=== PATIENT | male | born 1955 | race Caucasian/White ===

== ENCOUNTER → 2020-05-06 09:07 | Outpatient (BNVA) | payer OTHER, SELFPAY | PROVIDERS: PCP Internal Medicine; Visit Provider Internal Medicine | DX: F11.99 Opioid use, unspecified with unspecified opioid-induced disorder (principal) | CPT/HCPCS: 80305 ==

== ENCOUNTER → 2020-06-03 09:51 | Outpatient (BNVA) | payer OTHER, SELFPAY | PROVIDERS: Visit Provider Internal Medicine | DX: F11.20 Opioid dependence, uncomplicated (principal) | CPT/HCPCS: 80305 ==

== ENCOUNTER → 2020-07-02 13:24 | Outpatient (BNVA) | payer OTHER, SELFPAY | PROVIDERS: Visit Provider Internal Medicine | DX: Z76.89 Persons encountering health services in other specified circumstances (principal) ==

== ENCOUNTER → 2020-07-30 10:09 | Outpatient (BNVA) | payer OTHER, SELFPAY | PROVIDERS: PCP Internal Medicine; Visit Provider Internal Medicine | DX: Z76.89 Persons encountering health services in other specified circumstances (principal) ==

== ENCOUNTER → 2020-08-26 10:10 | Outpatient (BNVA) | payer OTHER, SELFPAY | PROVIDERS: PCP Internal Medicine; Visit Provider Internal Medicine ==

== ENCOUNTER 2020-09-23 10:09 | Outpatient (REF) | payer OTHER, SELFPAY ==
[2020-09-27 13:17] LABS: Buprenorphine 270 ng/mL; Norbuprenorphine 410 ng/mL
== END 2020-09-23 10:10 | disposition home or self-care (01) ==
LOC: HO.LNP 10:09
PROVIDERS: PCP Internal Medicine; Visit Provider Internal Medicine
DX: F11.20 Opioid dependence, uncomplicated (principal)
CPT/HCPCS: 80305; 80348

== ENCOUNTER → 2020-10-21 09:42 | Outpatient (BNVA) | payer OTHER, SELFPAY | PROVIDERS: PCP Internal Medicine; Visit Provider Internal Medicine | DX: F11.99 Opioid use, unspecified with unspecified opioid-induced disorder (principal); F12.90 Cannabis use, unspecified, uncomplicated; G89.4 Chronic pain syndrome | CPT/HCPCS: 80305 ==

== ENCOUNTER → 2020-11-18 09:41 | Outpatient (BNVA) | payer OTHER, SELFPAY | PROVIDERS: PCP Internal Medicine; Visit Provider Internal Medicine | DX: F11.99 Opioid use, unspecified with unspecified opioid-induced disorder (principal); F12.90 Cannabis use, unspecified, uncomplicated | CPT/HCPCS: 80305 ==

== ENCOUNTER → 2020-12-16 13:18 | Outpatient (BNVA) | payer OTHER, SELFPAY | PROVIDERS: Visit Provider Internal Medicine | DX: F11.99 Opioid use, unspecified with unspecified opioid-induced disorder (principal) | CPT/HCPCS: 80305 ==

== ENCOUNTER 2021-01-04 12:12 | Outpatient (REF) | payer OTHER, SELFPAY ==
[2021-01-04 13:01] LABS: MANUAL DIFF FLAG NO
[2021-01-04 13:06] LABS: Basophils Absolute Auto 0.1 X10*3/uL (0.0-0.2); Eosinophils Absolute Auto 0.1 X10*3/uL (0.0-0.4); Eosinophils Percent Auto 1.6 % (0-4); Hematocrit 53.2 % (42-52); Hemoglobin 18.1 g/dl (14.0-18.0); Imm Gran Abs Auto 0.04 X10*3/uL (0.00-0.03); Imm Gran Pct Auto 0.5 % (0.0-0.4); Lymphocytes Absolute Auto 2.1 X10*3/uL (1.2-4.9); Mean Corpuscular Hemoglobin 29.4 pg (27.0-33.0); Mean Corpuscular Volume 86.4 fL (80-98); Mean Platelet Volume 10.6 fL (9.4-12.4); Monocytes Absolute Auto 0.4 X10*3/uL (0.1-1.2); Monocytes Percent Auto 5.1 % (2-11); Neutrophils Absolute Auto 5.5 X10*3/uL (2.0-8.3); Neutrophils Percent Auto 66.8 % (45-73); Platelet Count 238 X10*3/uL (160-400); Red Blood Count 6.16 X10*6/uL (4.60-5.80); Red Cell Distribution Width 12.9 % (11.0-16.0); White Blood Count 8.2 X10*3/uL (4.8-10.8)
[2021-01-04 13:42] LABS: Anion Gap 14 (12-20); HDL Cholesterol 36 mg/dL
[2021-01-04 13:53] LABS: Glucose Urine UA 250 MG/DL (NEG); Leukocyte Esterase Urine NEG (NEG); Nitrite Urine NEG (NEG); PH 5.5 (5.0-8.0); Specific Gravity - Urine >= 1.030 (1.005-1.025); Urine Blood NEG (NEG); Urine Ketones NEG (NEG); Urine Protein NEG (NEG-TRACE)
[2021-01-04 13:58] LABS: Estimated Average Glucose 186 mg/dL; Hemoglobin A1c % 8.1 %
[2021-01-04 14:00] LABS: Appearance Urine CLEAR; Color Urine YELLOW
[2021-01-04 14:02] LABS: Alanine Aminotransferase 19 U/L (0-40); Albumin Level 4.3 g/dL (3.5-5.0); Alkaline Phosphatase 131 U/L (39-117); Aspartate Amino Transferase 15 U/L (5-37); Bilirubin Total 0.5 mg/dL (0.0-1.0); Blood Urea Nitrogen 20 mg/dL (9-16); Calcium 9.6 mg/dL (8.4-10.2); Carbon Dioxide 26 mmol/L (22-29); Chloride 106 mmol/L (96-108); Cholesterol 181 mg/dL; Estimated Glomerular Filt Rate > 60; Glucose Random 193 mg/dL (60-115); LDL Cholesterol Calculated 129 mg/dl; Potassium 4.5 mmol/L (3.3-5.1); Sodium 141 mmol/L (135-145); Total Protein 7.1 g/dL (6.5-8.0); Triglycerides 82 mg/dL
[2021-01-04 14:03] LABS: Prostate Specific Antigen 2.83 ng/mL (<0.05-4.0)
[2021-01-04 14:09] LABS: Creatinine Urine 198.89 mg/dL; Microalbum/Creatinine Ratio Ur 12.5 ug/mg cr
== END 2021-01-04 12:13 | disposition home or self-care (01) ==
LOC: HO.LAB 12:12
PROVIDERS: PCP Internal Medicine; Visit Provider Internal Medicine
DX: Z12.5 Encounter for screening for malignant neoplasm of prostate (principal); J44.9 Chronic obstructive pulmonary disease, unspecified; G47.33 Obstructive sleep apnea (adult) (pediatric); N40.0 Benign prostatic hyperplasia without lower urinary tract symptoms; I10 Essential (primary) hypertension; R73.03 Prediabetes
CPT/HCPCS: 36415; 80053; 80061; 81003; 82043; 83036; 84153; 85025

== ENCOUNTER → 2021-01-13 09:42 | Outpatient (BNVA) | payer OTHER, SELFPAY | PROVIDERS: Visit Provider Internal Medicine | DX: Z51.81 Encounter for therapeutic drug level monitoring (principal); F11.90 Opioid use, unspecified, uncomplicated | CPT/HCPCS: 80305 ==

== ENCOUNTER 2021-02-10 10:28 | Outpatient (REF) | payer OTHER, SELFPAY | END 2021-02-10 10:29 | disposition home or self-care (01) | LOC: HO.LAB 10:28 | PROVIDERS: Visit Provider Internal Medicine | DX: F11.99 Opioid use, unspecified with unspecified opioid-induced disorder (principal); Z51.81 Encounter for therapeutic drug level monitoring | CPT/HCPCS: 80305; 80348; 80354; 80362; 80364; 80365 ==

== ENCOUNTER → 2021-03-10 14:17 | Outpatient (BNVA) | payer OTHER, SELFPAY | PROVIDERS: Visit Provider Internal Medicine | DX: G89.4 Chronic pain syndrome (principal); F11.99 Opioid use, unspecified with unspecified opioid-induced disorder; F12.29 Cannabis dependence with unspecified cannabis-induced disorder; Z88.6 Allergy status to analgesic agent; Z88.8 Allergy status to other drugs, medicaments and biological substances; Z51.81 Encounter for therapeutic drug level monitoring | CPT/HCPCS: 80305 ==

== ENCOUNTER → 2021-05-05 10:15 | Outpatient (BNVA) | payer OTHER, SELFPAY | PROVIDERS: Visit Provider Internal Medicine | DX: Z51.81 Encounter for therapeutic drug level monitoring (principal); F11.90 Opioid use, unspecified, uncomplicated | CPT/HCPCS: 80305 ==

== ENCOUNTER 2021-05-07 10:56 | Outpatient (REF) | payer OTHER, SELFPAY ==
[2021-05-07 13:50] LABS: Estimated Average Glucose 163 mg/dL; Hemoglobin A1c % 7.3 %
[2021-05-07 13:58] LABS: Anion Gap 11 (12-20); Blood Urea Nitrogen 17 mg/dL (9-16); Calcium 9.7 mg/dL (8.4-10.2); Carbon Dioxide 28 mmol/L (22-29); Chloride 104 mmol/L (96-108); Estimated Glomerular Filt Rate > 60; Glucose Random 240 mg/dL (60-115); Potassium 4.2 mmol/L (3.3-5.1); Sodium 139 mmol/L (135-145)
== END 2021-05-07 10:57 | disposition home or self-care (01) ==
LOC: HO.10HDL 10:56
PROVIDERS: Visit Provider Internal Medicine
DX: E11.9 Type 2 diabetes mellitus without complications (principal)
CPT/HCPCS: 36415; 80048; 83036

== ENCOUNTER → 2021-07-07 10:16 | Outpatient (BNVA) | payer OTHER, SELFPAY | PROVIDERS: Visit Provider Internal Medicine | DX: F11.20 Opioid dependence, uncomplicated (principal); Z51.81 Encounter for therapeutic drug level monitoring; Z79.899 Other long term (current) drug therapy | CPT/HCPCS: 80305 ==

== ENCOUNTER → 2021-09-14 10:20 | Outpatient (BNVA) | payer BC, SELFPAY | PROVIDERS: Visit Provider Internal Medicine | DX: F11.20 Opioid dependence, uncomplicated (principal) | CPT/HCPCS: 80305 ==

== ENCOUNTER → 2021-11-09 10:28 | Outpatient (BNVA) | payer BC, SELFPAY | PROVIDERS: Visit Provider Internal Medicine | DX: Z51.81 Encounter for therapeutic drug level monitoring (principal); F11.20 Opioid dependence, uncomplicated | CPT/HCPCS: 80305 ==

== ENCOUNTER → 2022-01-04 11:21 | Outpatient (BNVA) | payer BC, SELFPAY | PROVIDERS: PCP Internal Medicine; Visit Provider Internal Medicine | DX: F11.20 Opioid dependence, uncomplicated (principal) | CPT/HCPCS: 80305; 99212 ==

== ENCOUNTER → 2022-03-09 11:17 | Outpatient (BNVA) | payer BC, MEDICARE, SELFPAY | PROVIDERS: PCP Internal Medicine; Visit Provider Internal Medicine | DX: F11.20 Opioid dependence, uncomplicated (principal) | CPT/HCPCS: 99212 ==

== ENCOUNTER 2022-05-04 17:06 | Outpatient (REF) | payer BC, SELFPAY ==
[2022-05-04 17:42] LABS: Fentanyl, urine Not Detected (Not Detect)
[2022-05-09 09:30] LABS: Buprenorphine 533
[2022-05-09 09:31] LABS: Naloxone 1392; Norbuprenorphine 409
== END 2022-05-04 17:07 | disposition home or self-care (01) ==
LOC: HO.LNP 17:06
PROVIDERS: Visit Provider Internal Medicine
DX: F11.20 Opioid dependence, uncomplicated (principal); Z51.81 Encounter for therapeutic drug level monitoring
CPT/HCPCS: 80307; 80348; 80362; 99212

== ENCOUNTER 2022-05-30 08:24 | Outpatient (REF) | payer BC, MEDICARE, SELFPAY ==
[2022-05-30 10:28] LABS: MANUAL DIFF FLAG NO
[2022-05-30 10:40] LABS: Basophils Absolute Auto 0.1 X10*3/uL (0.0-0.2); Basophils Percent Auto 1.2 % (0-2); Eosinophils Absolute Auto 0.3 X10*3/uL (0.0-0.4); Eosinophils Percent Auto 3.5 % (0-4); Hematocrit 53.7 % (42.0-52.0); Hemoglobin 17.9 g/dl (14.0-18.0); Imm Gran Abs Auto 0.04 X10*3/uL (0.00-0.03); Imm Gran Pct Auto 0.5 % (0.0-0.4); Lymphocytes Absolute Auto 2.5 X10*3/uL (1.2-4.9); Lymphocytes Percent Auto 28.5 % (20-40); Mean Corpuscular HGB Conc 33.3 g/dl (31.0-36.0); Mean Corpuscular Hemoglobin 28.2 pg (27.0-33.0); Mean Corpuscular Volume 84.7 fL (80.0-98.0); Mean Platelet Volume 10.3 fL (9.4-12.4); Monocytes Absolute Auto 0.5 X10*3/uL (0.1-1.2); Monocytes Percent Auto 5.8 % (2-11); Neutrophils Absolute Auto 5.3 x10*3/uL (2.0-8.3); Neutrophils Percent Auto 60.5 % (45-73); Platelet Count 245 X10*3/uL (160-400); Red Blood Count 6.34 X10*6/uL (4.60-5.80); Red Cell Distribution Width 13.2 % (11.0-16.0); White Blood Count 8.8 X10*3/uL (4.8-10.8)
[2022-05-30 10:55] LABS: Estimated Average Glucose 157 mg/dL; Hemoglobin A1c % 7.1 %
[2022-05-30 11:10] LABS: Alanine Aminotransferase 14 U/L (0-40); Albumin Level 3.9 g/dL (3.5-5.0); Alkaline Phosphatase 117 U/L (39-117); Anion Gap 15 (12-20); Aspartate Amino Transferase 13 U/L (5-37); Bilirubin Total 0.6 mg/dL (0.0-1.0); Blood Urea Nitrogen 16 mg/dL (9-16); Carbon Dioxide 26 mmol/L (22-29); Chloride 104 mmol/L (96-108); Cholesterol 146 mg/dL; Estimated Glomerular Filt Rate > 60; Glucose Fasting 159 mg/dL (60-99); HDL Cholesterol 34 mg/dL; LDL Cholesterol Calculated 102 mg/dl; Potassium 4.3 mmol/L (3.3-5.1); Sodium 141 mmol/L (135-145); Total Protein 6.9 g/dL (6.5-8.0); Triglycerides 53 mg/dL
[2022-05-30 11:16] LABS: Prostate Specific Antigen Scr 2.92 ng/mL (<0.05-4.0)
[2022-05-30 11:18] LABS: Creatinine Urine 90.84 mg/dL; Microalbum/Creatinine Ratio Ur 13.2 ug/mg cr
== END 2022-05-30 08:25 | disposition home or self-care (01) ==
LOC: HO.10HDL 08:24
PROVIDERS: Visit Provider Internal Medicine
DX: Z12.5 Encounter for screening for malignant neoplasm of prostate (principal); M19.90 Unspecified osteoarthritis, unspecified site; E11.9 Type 2 diabetes mellitus without complications; I10 Essential (primary) hypertension; N40.0 Benign prostatic hyperplasia without lower urinary tract symptoms
CPT/HCPCS: 36415; 80053; 80061; 82043; 83036; 84153; 85025

== ENCOUNTER → 2022-06-29 10:43 | Outpatient (BNVA) | payer OTHER, MEDICARE, SELFPAY | PROVIDERS: PCP Internal Medicine; Visit Provider Internal Medicine | DX: F11.20 Opioid dependence, uncomplicated (principal) | CPT/HCPCS: 99212 ==

== ENCOUNTER → 2022-09-09 14:10 | Outpatient (BNVA) | payer BC, MEDICARE, SELFPAY | PROVIDERS: PCP Internal Medicine; Visit Provider Nurse Practitioner Psychiatric/Mental Health | DX: Z51.81 Encounter for therapeutic drug level monitoring (principal); F11.20 Opioid dependence, uncomplicated | CPT/HCPCS: 80305; 99212 ==

== ENCOUNTER 2022-09-27 10:28 | Outpatient (REF) | payer BC, MEDICARE, SELFPAY ==
[2022-09-27 12:08] LABS: Estimated Average Glucose 169 mg/dL; Hemoglobin A1c % 7.5 %
[2022-09-27 12:35] LABS: Alanine Aminotransferase 11 U/L (0-40); Albumin Level 4.3 g/dL (3.5-5.0); Alkaline Phosphatase 118 U/L (39-117); Anion Gap 13 (12-20); Aspartate Amino Transferase 12 U/L (5-37); Bilirubin Total 0.4 mg/dL (0.0-1.0); Blood Urea Nitrogen 16 mg/dL (9-16); Calcium 9.7 mg/dL (8.4-10.2); Carbon Dioxide 30 mmol/L (22-29); Chloride 101 mmol/L (96-108); Estimated Glomerular Filt Rate > 60; Glucose Random 145 mg/dL (60-115); Potassium 4.8 mmol/L (3.3-5.1); Sodium 139 mmol/L (135-145); Total Protein 7.3 g/dL (6.5-8.0)
== END 2022-09-27 10:29 | disposition home or self-care (01) ==
LOC: HO.LAB 10:28
PROVIDERS: PCP Internal Medicine; Visit Provider Internal Medicine
DX: E11.9 Type 2 diabetes mellitus without complications (principal); M54.9 Dorsalgia, unspecified; J44.9 Chronic obstructive pulmonary disease, unspecified
CPT/HCPCS: 36415; 80053; 83036

== ENCOUNTER → 2022-11-04 10:07 | Outpatient (BNVA) | payer BC, MEDICARE, SELFPAY | PROVIDERS: PCP Internal Medicine | DX: Z51.81 Encounter for therapeutic drug level monitoring (principal); Z79.899 Other long term (current) drug therapy | CPT/HCPCS: 80305 ==

== ENCOUNTER 2022-12-21 12:29 | Outpatient (REF) | payer BC, MEDICARE, SELFPAY ==
--- NOTE | ~2022-12-21 | XR_ITS ---
EXAMINATION: XR CHEST CLINICAL INFORMATION: Left chest wall pain COMPARISON: Chest 08/03/2017 TECHNIQUE: 2 views of the chest were obtained. FINDINGS: The lungs are well-expanded with dense opacity left lung base retrocardiac area suggestive of new infiltrate. Rest of the lungs are clear. Heart size and pulmonary vascularity is normal. No gross bony abnormality seen. XR/XR chest 2V IMPRESSION: Infiltrate left lower lobe.
[2022-12-21 13:06] LABS: MANUAL DIFF FLAG NO
[2022-12-21 13:19] LABS: Appearance Urine Turbid; Basophils Absolute Auto 0.1 X10*3/uL (0.0-0.2); Basophils Percent Auto 0.5 % (0-2); Color Urine Dark Yellow; Eosinophils Percent Auto 0.1 % (0-4); Glucose Urine UA 500 mg/dL (Negative); Hematocrit 43.9 % (42.0-52.0); Hemoglobin 14.2 g/dl (14.0-18.0); Imm Gran Abs Auto 0.11 X10*3/uL (0.00-0.03); Imm Gran Pct Auto 0.7 % (0.0-0.4); Leukocyte Esterase Urine Trace (Negative); Lymphocytes Absolute Auto 1.4 X10*3/uL (1.2-4.9); Lymphocytes Percent Auto 9.1 % (20-40); Mean Corpuscular HGB Conc 32.3 g/dl (31.0-36.0); Mean Corpuscular Hemoglobin 26.5 pg (27.0-33.0); Mean Corpuscular Volume 82.1 fL (80.0-98.0); Mean Platelet Volume 9.7 fL (9.4-12.4); Monocytes Absolute Auto 0.9 X10*3/uL (0.1-1.2); Monocytes Percent Auto 5.6 % (2-11); Nitrite Urine Negative (Negative); PH 5.5 (5.0-9.0); Platelet Count 468 X10*3/uL (160-400); Red Blood Count 5.35 X10*6/uL (4.60-5.80); Red Cell Distribution Width 13.9 % (11.0-16.0); Specific Gravity - Urine >= 1.030 (1.005-1.025); UMIC TRIGGER UA YES; Urine Blood Negative (Negative); Urine Ketones Trace mg/dL (Negative); Urine Protein 30 (1+) mg/dL (Neg-Trace); White Blood Count 15.4 X10*3/uL (4.8-10.8)
[2022-12-21 13:33] LABS: Bacteria Urine None Seen (None Seen); RBC Urine 0-2 /HPF (0-2); Squamous Epithelial Cell Urine 0-2 /HPF (0-2); WBC Urine 0-5 /HPF (0-5)
[2022-12-21 13:43] LABS: Alanine Aminotransferase 30 U/L (0-40); Albumin Level 3.5 g/dL (3.5-5.0); Alkaline Phosphatase 130 U/L (39-117); Anion Gap 14 (12-20); Aspartate Amino Transferase 26 U/L (5-37); Bilirubin Total 0.5 mg/dL (0.0-1.0); Blood Urea Nitrogen 17 mg/dL (9-16); C Reactive Protein 17.13 mg/dL (< or = 0.50); Calcium 9.7 mg/dL (8.4-10.2); Carbon Dioxide 29 mmol/L (22-29); Chloride 98 mmol/L (96-108); Estimated Glomerular Filt Rate > 60; Glucose Random 182 mg/dL (60-115); Lipase 6 U/L (8-78); Potassium 4.4 mmol/L (3.3-5.1); Sodium 137 mmol/L (135-145); Total Protein 7.1 g/dL (6.5-8.0)
== END 2022-12-21 12:30 | disposition home or self-care (01) ==
LOC: HO.10HDL 12:29
PROVIDERS: PCP Internal Medicine; Visit Provider Internal Medicine
DX: R10.9 Unspecified abdominal pain (principal); R07.89 Other chest pain; E11.9 Type 2 diabetes mellitus without complications; G47.33 Obstructive sleep apnea (adult) (pediatric)
CPT/HCPCS: 36415; 71046; 80053; 81001; 82550; 83690; 85025; 86140

== ENCOUNTER → 2022-12-30 09:19 | Outpatient (BNVA) | payer BC, MEDICARE, SELFPAY | PROVIDERS: PCP Internal Medicine; Visit Provider Nurse Practitioner Psychiatric/Mental Health | DX: Z51.81 Encounter for therapeutic drug level monitoring (principal) ==

== ENCOUNTER 2023-01-20 16:01 | Outpatient (REF) | payer BC, MEDICARE, SELFPAY ==
--- NOTE | ~2023-01-20 | XR_ITS ---
EXAMINATION: XR chest 2V CLINICAL INFORMATION: Reason for Exam S/P PNEUMONIA COMPARISON: Prior x-ray 12/21/2022. TECHNIQUE: XR chest 2V Lungs and Daisy: Redemonstration of opacification over the left infrahilar region and lung base presumably infiltrate pneumonia, dense consolidation on lateral view, cannot rule out underlying lung mass. Pleura: Left Subpulmonic pleural effusion. Heart: The heart is normal in size. Mediastinum: The mediastinum is within normal limits.. Bones: Skeletal structures included are normal for patient's age. XR/XR chest 2V IMPRESSION: Left infrahilar and left lower lobe consolidation, although could be pneumonia, cannot rule out underlying mass. Attention to follow-up recommended, May consider correlation with follow-up contrast enhanced CT scan, if not performed follow-up chest x-ray one month after completion of treatment recommended to ensure complete clearance.
== END 2023-01-20 16:02 | disposition home or self-care (01) ==
LOC: HO.XRAY 16:01
PROVIDERS: PCP Internal Medicine; Visit Provider Internal Medicine
DX: J18.9 Pneumonia, unspecified organism (principal)
CPT/HCPCS: 71046

== ENCOUNTER → 2023-02-14 07:45 | Outpatient (REF) | payer BC, MEDICARE, SELFPAY ==
--- NOTE | 2023-02-14 07:48 | CA_ITS ---
Acquisition Time: 2023-02-14 07:56:28 Total Exercise Time: 00:06:23 Test Indications: SOB Medications: SEE H Protocol: EULALIA Max HR: 133 BPM 85% of Pred: 155 BPM Max BP: 172/090 mmHG Max Work Load: 7.5 METS PT EXERCISED ON STD EULALIA PROTOCOL FOR 6:23 INTO STAGE 3. MAX HR 133-85%MAX. END POINT CHEST TIGHTNESS AND SOB. OCC PVC'S WITH EXERCISE IN THE FIRST 3 MIN. 1-2MM ST DEP IN INF/LAT LEADS WHICH RESOLVED WITH REST. PT C/O 4-5/10 CHEST PRESSURE WITH PEAK EXERCISE WHICH REQUIRED STOPPING THE TEST. POSITIVE FOR SUSPECTED ISCHEMIA. PT TO SEE CARDIOLOGY TODAY. Referred By: Thony Collins Overread By: SHERRI COLLINS MD
[2023-02-14 15:42] LABS: Hematocrit 48.9 % (42.0-52.0); Hemoglobin 15.8 g/dl (14.0-18.0); Mean Corpuscular HGB Conc 32.3 g/dl (31.0-36.0); Mean Corpuscular Hemoglobin 26.7 pg (27.0-33.0); Mean Corpuscular Volume 82.7 fL (80.0-98.0); Platelet Count 306 X10*3/uL (160-400); Prothrombin Time 12.5 SEC (11.1-13.3); Red Blood Count 5.91 X10*6/uL (4.60-5.80); Red Cell Distribution Width 15.3 % (11.0-16.0); White Blood Count 9.6 X10*3/uL (4.8-10.8)
[2023-02-14 16:58] LABS: Anion Gap 13 (12-20); Blood Urea Nitrogen 15 mg/dL (9-16); Calcium 10.5 mg/dL (8.4-10.2); Carbon Dioxide 30 mmol/L (22-29); Chloride 101 mmol/L (96-108); Estimated Glomerular Filt Rate > 60; Glucose Random 140 mg/dL (60-115); Potassium 4.3 mmol/L (3.3-5.1); Sodium 140 mmol/L (135-145)
== END ==
LOC: HO.CARD 07:45
PROVIDERS: Absent Provider Internal Medicine Cardiovascular Disease; PCP Internal Medicine; Visit Provider Internal Medicine
DX: R07.9 Chest pain, unspecified (principal); R06.09 Other forms of dyspnea
CPT/HCPCS: 36415; 80048; 85027; 85610; 93005; 93017

== ENCOUNTER 2023-02-14 13:49 | Outpatient (AMB) | payer BC, MEDICARE, SELFPAY ==
[2023-02-14 14:03] VITALS: BP 120/78; PULSE 83; BMI 22.8
--- NOTE | 2023-02-14 14:03 | MHC.OFFVIS ---
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: No Allergies acetaminophen [Tylenol] Allergy (Unknown, Verified 11/04/22 10:10) restless legs Antihistamines - Alkylamine [ANTIHISTAMINES - ALKYLAMINE] Allergy (Unknown, Verified 11/04/22 10:10) AGITATION Antihistamine Allergy (Unknown, Uncoded 11/04/22 10:10) itching Medication List - Last Reconciled 02/14/23 by Brian Chavez MD buprenorphine-naloxone 8-2 mg (Suboxone) 1 film sublingual BID 7 days cyclobenzaprine 10 mg PO BEDTIME metformin 500 mg PO DAILY HPI HPI Comments History of Present Illness Details thank you for referring Dagoberto in cardiology consultation today for precordial chest pressure. 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 Currently using Suboxone. He said usually very active and about 6 months ago while mowing the lawn he started noticing some chest pressure. He was then diagnosed with pneumonia and he was treated for it. However he continued to have exertional chest discomfort and continues to exertional chest discomfort right now with doing minimal activity which has limited his lifestyle. He underwent a stress test this morning which at 6 minutes on the Hansel protocol was positive for ischemia as well as symptom limiting to stop his treadmill. His Diaz treadmill score is -9.5. He is referred here for further evaluation and treatment. He continues to smoke. Was started on low-dose aspirin therapy but no other medical therapy at this point time. He said his father had similar problems and his grandfather 2. He denies any heart failure symptoms. Denies any prolonged palpitations, irregular heartbeat, lightheadedness, syncope. [facility] Medical History Chronic pain disorder Marijuana use Opioid use disorder Surgical History History of back surgery Family History Father Cancer Mother No problems noted. Social History Patient Tobacco Use Status: Current everyday Tobacco user Cigarettes Per Day: 10 Years Smoked: 30 Review of Systems Const Denies chills, Denies fatigue, Denies fever(s), Denies frequent falls, Denies weakness, Denies weight gain and Denies weight loss Eyes Denies loss of vision ENT Denies dizziness Card Denies chest pain, Denies leg edema, Denies lightheadedness, Denies palpitations, Denies dyspnea, Denies dyspnea on exertion, Denies orthopnea and Denies other (loss of consciousness) Resp Denies cough, Denies dyspnea, Denies dyspnea on exertion and Denies wheezing GI Denies hematochezia and Denies change in stool character Denies dysuria and Denies urinary frequency Musc Denies abnormal gait, Denies muscle weakness, Denies numbness, Denies radiating pain into limb and Denies tingling Skin/Breast Denies nail changes and Denies rash Neuro Denies Abnormal speech present, Denies abnormal gait, Denies dizziness, Denies frequent falls, Denies loss of vision, Denies memory loss, Denies numbness, Denies tingling and Denies weakness Psych Denies depression and Denies memory loss Endo Denies fatigue and Denies palpitations Andre/Lymph Reports easy bruising and Reports other (anemia) Aller/Immun Denies wheezing Physical Exam Vital Signs: Last Vital Signs Pulse 83 02/14/23 14:03 BP 120/78 02/14/23 14:03 BMI result Body Mass Index 22.8 Const General: cooperative, comfortable, no acute distress, alert, awake and Physically active Nutritional Appearance: thin Orientation/consciousness: patient oriented x3 Limitations: no limitations HEENT Head: Yes normocephalic and Yes atraumatic Neck Neck: Yes trachea midline, Yes supple and Yes no JVD Resp Effort & Inspection: normal respiratory effort Auscultation: clear to auscultation bilaterally Cardio Jugular venous distension: no JVD Palpation: normal PMI Rate: regular rate Rhythm: regular rhythm Heart sounds: S1 normal heart sound present, S2 normal heart sound present, no click, no gallops, no murmurs and no rubs GI Auscultation: normal bowel sounds Skin General skin exam: no rashes or lesions noted Neuro General: patient oriented x3 and no focal motor deficits Speech: No Abnormal speech present Extrem General: Yes no clubbing, cyanosis or edema Psych Appearance: grossly normal Office Procedures EKG Details: EKG shows normal sinus rhythm with nonspecific ST T wave changes. [id number], Complete Assessment & Plan Assessment & Plan (1) Exertional chest pain: Code(s): R07.9 - Chest pain, unspecified Plan: Exertional chest pain in this elderly gentleman with risk factors of smoking as well as family history, unknown lipid status with abnormal stress test with Diaz treadmill score about -10. High likelihood of underlying obstructive coronary artery disease that is prognostically significant. Recommend cardiac catheterization to further evaluate coronary anatomy. The risks, benefits, alternatives and details of the procedure was discussed with him. He is agreeable. Meanwhile will start him on low-dose aspirin therapy which has already been started in addition will start him on Toprol-XL 50 mg daily and atorvastatin 40 mg daily. He is advised to avoid strenuous activity for now. I am also giving him sublingual nitroglycerin for symptoms if happen at rest and a prolonged and advised him to seek emergency care. Will set him up for cardiac catheterization in near future. Also suggest echocardiogram to evaluate LV systolic and diastolic function to evaluate for regional wall motion abnormality and valvular function. This test will be scheduled in near future. Further treatment based on the findings of cardiac catheterization. Various outcomes were discussed with him. He understands and agrees. Complete smoking cessation is advised. Will follow up in the clinic after cardiac catheterization. Thank you for allowing me to partake in his care Orders: Orders CA echo transthoracic complete Today R07.9 - Chest pain, unspecified Basic Metabolic Panel Today R07.9 - Chest pain, unspecified Prothrombin Time INR Today R07.9 - Chest pain, unspecified Complete Blood Count no Diff Today R07.9 - Chest pain, unspecified Cardiac Cath LT w PCI 1 Week R07.9 - Chest pain, unspecified Medications: New metoprolol succinate ER (Toprol XL) 50 mg PO DAILY 30 tabs 2RF R07.9 - Chest pain, unspecified atorvastatin 40 mg PO DAILY 30 tabs 2RF R07.9 - Chest pain, unspecified nitroglycerin do not exceed 3 doses per episode 0.4 mg sublingual Q5M PRN 20 tabs 2RF chest pain R07.9 - Chest pain, unspecified Coding Level of Care Code New Pt Level 4 (24586) Diagnoses Exertional chest pain R07.9 CPT Codes EKG - CPT: 02653-[id number], Complete ([id number])
== END 2023-02-14 14:48 | disposition home or self-care (01) ==
PROVIDERS: PCP Internal Medicine; Visit Provider Internal Medicine Cardiovascular Disease
DX: R07.9 Chest pain, unspecified (principal)
CPT/HCPCS: 93010; 99204

== ENCOUNTER → 2023-02-24 08:44 | Outpatient (REF) | payer BC, MEDICARE, SELFPAY ==
--- NOTE | 2023-02-24 08:49 | CA_ITS ---
Transthoracic Echocardiogram Patient (Last, First, Middle): Dagoberto Garcia G Gender: Male Date of : 1955 Age: 67 Procedure Date: 02/24/2023 Procedure Type: Transthoracic Echocardiogram Location: OP Height: 177.8 cm Weight: 72.58 kg BSA: 1.90 m2 Heart Rate: 67 bpm BP: 130 / 80 mmHg [employer]: LASHANDA Referring MD: Brian Chavez MD Symptoms: R07.9 - Chest pain, unspecified Study Quality: Adequate w contrast ECG Rhythm: Sinus Conclusions: - The left ventricular systolic function is hyperdynamic. The visually estimated ejection fraction is >70%. - There is moderate septal asymmetric hypertrophy. - There is mild mitral annular calcification. - There is mild dilatation of the ascending aorta measuring 4.20 cm. Findings Procedure Information Contrast agent, definity, is being given per protocol without apparent complications. Left Ventricle Normal left ventricular cavity size. The left ventricular systolic function is hyperdynamic. The visually estimated ejection fraction is >70%. There is no evidence of regional wall motion abnormalities. Diastolic function is normal for age. There is moderate septal asymmetric hypertrophy. Right Ventricle Normal right ventricular cavity size and systolic function. Atria Both atria are normal in size. Aortic Valve There is a normal trileaflet aortic valve. There is mild calcification of the aortic valve. There is no aortic valve regurgitation. Mitral Valve There is mild anterior mitral leaflet thickening. There is mild mitral annular calcification. There is trace mitral valve regurgitation. There is no mitral valve stenosis. Pulmonic Valve The pulmonic valve is likely normal. Tricuspid Valve Normal tricuspid valve structure. There is trace tricuspid valve regurgitation. There is no evidence of pulmonary hypertension. Great Vessels There is mild dilatation of the ascending aorta measuring 4.20 cm. Venous The inferior vena cava is normal in size and collapses greater than 50% with inspiration. Pericardium/Pleural There is no evidence of pericardial effusion. Prior Study Comparison Changes noted compared to prior study dated: 08/04/2017. slight increase in ascending aortic size. Measurements 2D Linear Measurements IVSd: 1.43 0.6-0.9/0.6-1.0 cm LVIDd: 4.45 3.9-5.3/4.2-5.9 cm LVIDd Index: 2.34 2.4-3.2/2.2-3.1 cm/m2 LVIDs: 2.75 2.0-3.6 cm LVPWd: 0.80 0.7-1.1 cm LA Diam: 3.50 2.7-3.8/3.0-4.0 cm LAIDs Index: 1.84 1.5-2.3 cm/m2 LV Mass: 218.22 67-162/88-224 g LV Mass Index: 114.85 43-95/49-115 g/m2 LVOT Diam: 2.30 3.0+(-)1.3 cm 2D Systolic Function EF 4C: 66.60 >55% EF 2C: 79.60 >55% EF BiP: 74.30 >55% Mitral Valve MV Pk E: 0.83 MV PK A: 0.90 MV Decel Time: 268.00 E/A: 0.90 E'Lateral: 7.62 E'Medial: 5.55 E/E' Med: 15.00 E/E' Lat: 10.90 PHT: 78.00 MVA PHT: 2.82 Decel [place]: 3.11 Aortic Valve AoV Pk Shailesh: 1.34 AoV Pk Grad: 7.00 SHIRLENE: 4.00 LVOT LVOT Pk Shailesh: 1.26 LVOT Mn Shailesh: 0.90 LVOT VTI: 0.27 LVOT Pk Grad: 6.00 LVOT Mn Grad: 4.00 LVOT Diam: 2.30 LVOT Area: 4.15 Diastolic Function MV Pk E: 0.83 MV Pk A: 0.90 E/A: 0.90 E'Medial: 5.55 E/E' Med: 15.00 E' Laterial: 7.62 E/E' Lat: 10.90 Right Ventricle TAPSE (mm): 23.00 TVS' Shailesh: 12.30 Tricuspid Valve TR Pk Shailesh: 2.57 TR Pk Grad: 26.00 RA Press: 3.00 RVSP: 29.00 Great Vessels Aorta Sinus of Valsalva: 3.50 2.0-3.5 cm Ao Asc: 4.20 2.1-3.4 cm Pulmonary Veins Pulm Vein S/D 1.60 Pulmonary Valve PV Pk Shailesh: 0.85 Peak PV Grad: 3.00 Updated in Other Vendor System with Status of Final Chris Harry MD electronically signed on 02/26/2023 10:46:16 AM with status of Final
== END ==
LOC: HO.CARD 08:44
PROVIDERS: PCP Internal Medicine; Visit Provider Internal Medicine Cardiovascular Disease
DX: R07.9 Chest pain, unspecified (principal)
CPT/HCPCS: 93306; Q9957

== ENCOUNTER → 2023-02-24 08:49 | Outpatient (BNV) | payer BC, MEDICARE, SELFPAY | PROVIDERS: PCP Internal Medicine; Visit Provider Internal Medicine | DX: I34.81 Nonrheumatic mitral (valve) annulus calcification (principal) | CPT/HCPCS: 93306 ==

== ENCOUNTER → 2023-02-27 23:59 | Outpatient (BNV) | payer BC, MEDICARE, SELFPAY | PROVIDERS: PCP Internal Medicine; Visit Provider Internal Medicine Cardiovascular Disease | DX: I20.8 Other forms of angina pectoris (principal); R93.1 Abnormal findings on diagnostic imaging of heart and coronary circulation; R07.9 Chest pain, unspecified | CPT/HCPCS: 93458; 99152 ==

== ENCOUNTER 2023-03-16 13:59 | Outpatient (AMB) | payer BC, MEDICARE, SELFPAY ==
[2023-03-16 14:44] VITALS: BP 122/60; PULSE 71; BMI 22.8
--- NOTE | 2023-03-16 14:44 | A.OFFVIS_ITS ---
Intake Vital Signs 03/16/23 14:44 Height 5 ft 10 in Weight 158 lb 11.725 oz BMI 22.8 BP 122/60 Blood Pressure Location Lt brachial Position Sitting Pulse 71 Pulse Source Pulse Oximeter Intake Visit Reasons: 2 wk s/p cath Intake Note: 2 week s/p cath felling good Lan Support Specialist Required: No Allergies acetaminophen [Tylenol] Allergy (Unknown, Verified 03/16/23 14:48) restless legs Antihistamines - Alkylamine [ANTIHISTAMINES - ALKYLAMINE] Allergy (Unknown, Verified 03/16/23 14:48) AGITATION Antihistamine Allergy (Unknown, Uncoded 11/04/22 10:10) itching Medication List - Last Reconciled 03/16/23 by CAROL Rivas aspirin 81 mg PO DAILY atorvastatin 40 mg PO DAILY buprenorphine-naloxone 8-2 mg (Suboxone) 1 film sublingual BID 7 days cyclobenzaprine 10 mg PO BEDTIME isosorbide mononitrate ER 60 mg PO DAILY metformin 500 mg PO DAILY metoprolol succinate ER 50 mg PO DAILY nitroglycerin 0.4 mg sublingual Q5M PRN HPI 2 wk s/p cath HPI Details Dagoberto is a 67-year-old male with past medical history of hyperlipidemia who recently reported exertional chest discomfort and underwent a cardiac stress test which was abnormal. He then had cardiac catheterization showing 1st OM 95% stenosis in left PDA 100% INTERNAL REVIEW AND AUDIT COMPLIANCE. He was managed medically and presents for follow-up. Today he reports that his chest discomfort never fully went away. He continues to get periodic episodes especially with running after his grandchildren and mowing the lawn. He describes it as a pressure in his mid chest that will resolve with rest. He had says he goes for a walk most days up to 2 miles and does not get chest discomfort with that. He tells me he had been getting his discomfort daily and now it is only a few times a week. He has been on the metoprolol and isosorbide and believes they have helped him. He denies any new chest discomfort, shortness of breath, palpitations, dizziness, presyncope, syncope, PND, orthopnea or edema. Taking meds as directed. [facility] Medical History Chronic pain disorder Marijuana use Opioid use disorder Surgical History History of back surgery Family History Father Cancer Mother No problems noted. Social History Patient Tobacco Use Status: Current everyday Tobacco user Cigarettes Per Day: 10 Years Smoked: 30 Review of Systems Const All systems reviewed & are unremarkable except as noted in HPI and below ENT Denies dizziness Card Reports chest pain (Improved with use of metoprolol), Reports chest pain at rest, Reports chest pain with activity, Denies rapid heart rate, Denies pedal edema, Denies edema, Denies leg edema, Denies lightheadedness, Denies palpitations, Denies dyspnea, Denies dyspnea on exertion and Denies orthopnea Resp Denies cough, Denies dyspnea and Denies dyspnea on exertion GI Denies hematochezia and Denies change in stool character Musc Denies abnormal gait, Denies limited range of motion, Denies muscle cramps, Denies muscle weakness, Denies numbness, Denies radiating pain into limb, Denies stiffness and Denies tingling Neuro Denies abnormal gait, Denies dizziness, Denies numbness and Denies tingling Endo Denies palpitations Physical Exam Vital Signs: Last Vital Signs Pulse 71 03/16/23 14:44 BP 122/60 03/16/23 14:44 BMI result Body Mass Index 22.8 Const General: cooperative, healthy appearing, comfortable and no acute distress Orientation/consciousness: patient oriented x3 Neck Neck: Yes normal visual inspection Resp Effort & Inspection: normal respiratory effort Auscultation: clear to auscultation bilaterally, no crackles, no rales, no rhonchi and no wheezes Cardio Jugular venous distension: no JVD Rate: regular rate Rhythm: regular rhythm Heart sounds: S1 normal heart sound present, S2 normal heart sound present, no gallops, no murmurs and no rubs Neuro General: patient oriented x3 Extrem Other: Right radial catheterization site well healed, easily palpable radial pulse and hand assessment normal General: Yes normal to inspection Psych Appearance: grossly normal Mental Status: mental status grossly normal Speech and movement: Normal speech and movement present Assessment & Plan Assessment & Plan (1) Exertional chest pain: Code(s): R07.9 - Chest pain, unspecified Plan: Reports of exertional angina, relieved with rest recent exercise stress test positive for symptoms and EKG changes. Echocardiogram done 02/24/2023 showing EF greater than 70%, moderate septal asymmetric hypertrophy, mildly dilated ascending aorta 4.2 cm. He underwent cardiac catheterization on 02/27/2023 showing LAD 40% stenosis, 1st OM 95% stenosis, left PDA 100% INTERNAL REVIEW AND AUDIT COMPLIANCE with collaterals, RCA moderate disease. Plan is for medical management unless he continues to have anginal symptoms. He is currently on aspirin indefinitely, atorvastatin 40 mg daily with LDL goal less than 70. He is on isosorbide 30 mg daily and metoprolol XL 50 mg daily. He reports improvement in his symptoms overall with these medications however continues to have breakthrough angina. Will increase his isosorbide up to 60 mg daily. Will arrange for follow-up in 4 weeks. If he continues to have symptoms then will discussed PCI of the OM1 branch. Emergency care if needed for symptoms. Continue activity as tolerated, rest if needed. Call if symptoms are increasing or persisting. (2) S/P cardiac cath: Comment: 01/2023, lad mid 40% stenosis, 1st OM 95% stenosis, left PDA, proximal 100% stenosis, INTERNAL REVIEW AND AUDIT COMPLIANCE with [id number] collateral, RCA moderate disease - medical management, if he has recurrent angina then planned PCI of OM1 Code(s): Z98.890 - Other specified postprocedural states Plan: Right radial catheterization site well healed (3) Coronary atherosclerosis: Code(s): I25.10 - Atherosclerotic heart disease of [place] coronary artery without angina pectoris (4) Hyperlipidemia: Code(s): E78.5 - Hyperlipidemia, unspecified Plan: [place] LDL goal less than 70. Labs done 05/30/2022 show LDL 102. Unclear if he was on statin at that time. He is currently on atorvastatin 40 mg daily. Plan to order fasting lipid profile at next visit. Coding Level of Care Code Est Pt Level 4 (66286) Diagnoses Exertional chest pain R07.9 S/P cardiac cath Z98.890 Coronary atherosclerosis I25.10 Hyperlipidemia E78.5 Time Spent (min) 28 Comment Chart review, documentation, interview, assessment
== END 2023-03-16 15:28 | disposition home or self-care (01) ==
PROVIDERS: PCP Internal Medicine; Referring Provider Internal Medicine; Visit Provider Nurse Practitioner Family
DX: R07.9 Chest pain, unspecified (principal); Z98.890 Other specified postprocedural states; I25.10 Atherosclerotic heart disease of native coronary artery without angina pectoris; E78.5 Hyperlipidemia, unspecified
CPT/HCPCS: 99214

== ENCOUNTER → 2023-03-16 13:59 | Outpatient (BNVA) | payer BC, MEDICARE, SELFPAY | PROVIDERS: PCP Internal Medicine; Referring Provider Internal Medicine; Visit Provider Nurse Practitioner Family | DX: R07.9 Chest pain, unspecified (principal); I25.10 Atherosclerotic heart disease of native coronary artery without angina pectoris; E78.5 Hyperlipidemia, unspecified; Z79.82 Long term (current) use of aspirin; Z79.899 Other long term (current) drug therapy; Z98.890 Other specified postprocedural states | CPT/HCPCS: 99212 ==

== ENCOUNTER 2023-04-05 13:00 | Outpatient (AMB) | payer BC, MEDICARE, SELFPAY ==
--- NOTE | 2023-04-05 13:08 | MHC.OFFVIS ---
Intake Vital Signs 04/05/23 13:09 BP 132/80 Blood Pressure Location Lt radial Position Sitting Pulse 72 Pulse Source Pulse Oximeter Pulse Oximetry (%) 91 L Oxygen Delivery Method Room Air Intake Visit Reasons: mat visit Intake Note: the patient presents for a mat visit Sensory Scientist Required: No Allergies acetaminophen [Tylenol] Allergy (Unknown, Verified 04/05/23 13:09) restless legs Antihistamines - Alkylamine [ANTIHISTAMINES - ALKYLAMINE] Allergy (Unknown, Verified 04/05/23 13:09) AGITATION Antihistamine Allergy (Unknown, Uncoded 04/05/23 13:09) itching Do you need a note to return to daycare/school/sports/work: No HPI mat visit HPI Details Patient presents for follow up cardiac catheterization on February 27 feeling better than during last visit when he was recovering from pneumonia doing well with suboxone no questions or concerns --occasional constipation. Using Colace and Metamucil. [facility] Medical History Chronic pain disorder Marijuana use Opioid use disorder Surgical History History of back surgery Family History Father Cancer Mother No problems noted. Social History Patient Tobacco Use Status: Current everyday Tobacco user Cigarettes Per Day: 10 Years Smoked: 30 Review of Systems Const Reports as per HPI and Reports no additional complaints Physical Exam Vital Signs: Last Vital Signs Pulse 72 04/05/23 13:09 BP 132/80 04/05/23 13:09 Pulse Ox 91 L 04/05/23 13:09 Oxygen Delivery Method Room Air 04/05/23 13:09 Const General: cooperative, healthy appearing, no acute distress and well groomed Assessment & Plan Assessment & Plan (1) Opioid use disorder, moderate, in sustained remission: Code(s): F11.21 - Opioid dependence, in remission Plan: Continue Suboxone at current dose Follow-up 3 months Medications: Changed From buprenorphine-naloxone 8-2 mg (Suboxone) 1 film sublingual BID 7 days 14 ea 0RF To buprenorphine-naloxone 8-2 mg (Suboxone) 1 film sublingual BID 60 ea 2RF Coding Level of Care Code Est Pt Level 3 (37277) Diagnoses Opioid use disorder, moderate, in sustained remission F11.21
[2023-04-05 13:09] VITALS: BP 132/80; PULSE 72; O2SAT 91
== END 2023-04-05 13:29 | disposition home or self-care (01) ==
LOC: HO.HCC 13:01
PROVIDERS: PCP Internal Medicine; Visit Provider Nurse Practitioner Psychiatric/Mental Health
DX: F11.21 Opioid dependence, in remission (principal)
CPT/HCPCS: 99213

== ENCOUNTER → 2023-04-05 13:00 | Outpatient (BNVA) | payer BC, MEDICARE, SELFPAY | PROVIDERS: PCP Internal Medicine; Visit Provider Nurse Practitioner Psychiatric/Mental Health ==

== ENCOUNTER 2023-04-28 09:34 | Outpatient (AMB) | payer BC, MEDICARE, SELFPAY ==
[2023-04-28 09:35] VITALS: BP 120/60; PULSE 81; BMI 23.6
--- NOTE | 2023-04-28 09:35 | MHC.OFFVIS ---
Intake Vital Signs 04/28/23 09:35 Height 5 ft 10 in Weight 164 lb 7.437 oz BMI 23.6 BP 120/60 Blood Pressure Location Lt brachial Position Sitting Pulse 81 Pulse Source Pulse Oximeter Intake Visit Reasons: 6 wk fu Intake Note: 6 wk f/u Travel Rn Or Required: No Allergies acetaminophen [Tylenol] Allergy (Unknown, Verified 04/28/23 09:40) restless legs Antihistamines - Alkylamine [ANTIHISTAMINES - ALKYLAMINE] Allergy (Unknown, Verified 04/28/23 09:40) AGITATION Antihistamine Allergy (Unknown, Uncoded 04/05/23 13:09) itching Medication List - Last Reconciled 04/28/23 by Madeleine Nava NP-C aspirin 81 mg PO DAILY atorvastatin 40 mg PO DAILY buprenorphine-naloxone 8-2 mg (Suboxone) 1 film sublingual TID cyclobenzaprine 10 mg PO BEDTIME isosorbide mononitrate ER 60 mg PO DAILY metformin 500 mg PO DAILY metoprolol succinate ER 50 mg PO DAILY nitroglycerin 0.4 mg sublingual ONCE HPI 6 wk fu HPI Details Dagoberto is a 67-year-old male with past medical history of hyperlipidemia who recently reported exertional chest discomfort and underwent a cardiac stress test which was abnormal. He then had cardiac catheterization showing 1st OM 95% stenosis in left PDA 100% FACILITY COORDINATOR. He was managed medically. On last visit he reported ongoing chest discomfort and his isosorbide dose was increased. Today he reports that he has been feeling better overall. He will still get some mild pressure in his chest with exertion such as mowing the lawn. He says the increase in the isosorbide has helped. No chest discomfort at rest. No shortness of breath, palpitations, presyncope, syncope, PND, orthopnea or edema. Taking meds as directed. [facility] Medical History Chronic pain disorder Marijuana use Opioid use disorder Surgical History History of back surgery Family History Father Cancer Mother No problems noted. Social History Patient Tobacco Use Status: Former Tobacco user Quit Date: october 2022 Cigarettes Per Day: 10 Years Smoked: 30 Review of Systems Const All systems reviewed & are unremarkable except as noted in HPI and below ENT Denies dizziness Card Denies chest pain, Denies chest pain at rest, Reports chest pain with activity, Denies rapid heart rate, Denies pedal edema, Denies edema, Denies leg edema, Denies lightheadedness, Denies palpitations, Denies dyspnea, Denies dyspnea on exertion and Denies orthopnea Resp Denies cough, Denies dyspnea and Denies dyspnea on exertion GI Denies hematochezia and Denies change in stool character Musc Denies abnormal gait, Denies limited range of motion, Denies muscle cramps, Denies muscle weakness, Denies numbness, Denies radiating pain into limb, Denies stiffness and Denies tingling Neuro Denies abnormal gait, Denies dizziness, Denies numbness and Denies tingling Endo Denies palpitations Physical Exam Vital Signs: Last Vital Signs Pulse 81 04/28/23 09:35 BP 120/60 04/28/23 09:35 BMI result Body Mass Index 23.6 Const General: cooperative, healthy appearing, comfortable and no acute distress Orientation/consciousness: patient oriented x3 Neck Neck: Yes normal visual inspection Resp Effort & Inspection: normal respiratory effort Auscultation: clear to auscultation bilaterally, no crackles, no rales, no rhonchi and no wheezes Cardio Jugular venous distension: no JVD Rate: regular rate Rhythm: regular rhythm Heart sounds: S1 normal heart sound present, S2 normal heart sound present, no gallops, no murmurs and no rubs Neuro General: patient oriented x3 Extrem Other: Right radial catheterization site well healed, easily palpable radial pulse and hand assessment normal General: Yes normal to inspection Psych Appearance: grossly normal Mental Status: mental status grossly normal Speech and movement: Normal speech and movement present Assessment & Plan Assessment & Plan (1) Exertional chest pain: Code(s): R07.9 - Chest pain, unspecified Plan: Reports of exertional angina, relieved with rest recent exercise stress test positive for symptoms and EKG changes. Echocardiogram done 02/24/2023 showing EF greater than 70%, moderate septal asymmetric hypertrophy, mildly dilated ascending aorta 4.2 cm. He underwent cardiac catheterization on 02/27/2023 showing LAD 40% stenosis, 1st OM 95% stenosis, left PDA 100% FACILITY COORDINATOR with collaterals, RCA moderate disease. Plan is for medical management unless he continues to have anginal symptoms. He is currently on aspirin indefinitely, atorvastatin 40 mg daily with LDL goal less than 70. Metoprolol XL to 50 mg daily. On last visit his isosorbide was increased up to 60 mg daily due to reports of chest discomfort. Today he reports some improvement in his symptoms though he will still get some mild exertional discomfort. Will increase his metoprolol XL up to 75 mg daily. Will start in cardiac rehab to help monitor his symptoms f he continues to have symptoms in spite of med management then will discussed PCI of the OM1 branch. Emergency care if needed for symptoms. Continue activity as tolerated, rest if needed. Call if symptoms are increasing or persisting. Cardiology office visit in 3 months, sooner if needed. (2) S/P cardiac cath: Comment: 01/2023, lad mid 40% stenosis, 1st OM 95% stenosis, left PDA, proximal 100% stenosis, FACILITY COORDINATOR with [id number] collateral, RCA moderate disease - medical management, if he has recurrent angina then planned PCI of OM1 Code(s): Z98.890 - Other specified postprocedural states Plan: Right radial catheterization site well healed (3) Coronary atherosclerosis: Code(s): I25.10 - Atherosclerotic heart disease of [place] coronary artery without angina pectoris (4) Hyperlipidemia: Code(s): E78.5 - Hyperlipidemia, unspecified Plan: [place] LDL goal less than 70. Labs done 05/30/2022 show LDL 102. Unclear if he was on statin at that time. He is currently on atorvastatin 40 mg daily. Will order fasting lipid to be repeated. Orders: Orders Cardiac Rehab Today I20.89 - Other forms of angina pectoris Lipid Panel Today E78.5 - Hyperlipidemia, unspecified Comprehensive Met. Panel Today I20.89 - Other forms of angina pectoris Medications: New metoprolol succinate ER 75 mg (1.5 x 50 mg) PO DAILY 135 tabs 1RF 90 days Discontinued metoprolol succinate ER Discontinued Reason: Doctor's Order 50 mg PO DAILY 90 tabs 3RF R07.9 - Chest pain, unspecified Coding Level of Care Code Est Pt Level 3 (53133) Diagnoses Exertional chest pain R07.9 S/P cardiac cath Z98.890 Coronary atherosclerosis I25.10 Hyperlipidemia E78.5 Time Spent (min) 22
== END 2023-04-28 09:54 | disposition home or self-care (01) ==
PROVIDERS: PCP Internal Medicine; Visit Provider Nurse Practitioner Family
DX: R07.9 Chest pain, unspecified (principal); Z98.890 Other specified postprocedural states; I25.10 Atherosclerotic heart disease of native coronary artery without angina pectoris; E78.5 Hyperlipidemia, unspecified
CPT/HCPCS: 99213

== ENCOUNTER → 2023-04-28 09:34 | Outpatient (BNVA) | payer BC, MEDICARE, SELFPAY | PROVIDERS: PCP Internal Medicine; Visit Provider Nurse Practitioner Family ==

== ENCOUNTER 2023-06-28 12:55 | Outpatient (AMB) | payer BC, MEDICARE, SELFPAY ==
--- NOTE | 2023-06-28 12:57 | A.OFFVIS_ITS ---
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 Denies side effects, feels his dose is appropriate. Reports this summer he needed a cardiac cath after having chest pain doing yard work He is currently being follow by cardiology at [facility]. Has a vial of nitro he keeps with him at all times. Says he may need to have a stent placed. [facility] Medical History Chronic pain disorder Marijuana use Opioid use disorder Surgical History History of back surgery Family History Father Cancer Mother No problems noted. Social History Patient Tobacco Use Status: Former Tobacco user Quit Date: october 2022 Cigarettes Per Day: 10 Years Smoked: 30 Review of Systems Const Reports as per HPI Physical Exam Vital Signs: Last Vital Signs Pulse 84 06/28/23 13:03 BP 130/80 06/28/23 13:03 Pulse Ox 95 06/28/23 13:03 Const General: cooperative and no acute distress Resp Effort & Inspection: normal respiratory effort Skin General skin exam: no rashes or lesions noted Psych Appearance: grossly normal Mental Status: mental status grossly normal Speech and movement: Normal speech and movement present Affect: normal affect Attitude: cooperative Assessment & Plan Assessment & Plan (1) Opioid use disorder, moderate, in sustained remission: Code(s): F11.21 - Opioid dependence, in remission Plan: -Continue suboxone at current dose -Follow up 3 months. Medications: Refilled buprenorphine-naloxone 8-2 mg (Suboxone) 1 film sublingual TID 90 ea 2RF Coding Level of Care Code Est Pt Level 3 (32335) Diagnoses Opioid use disorder, moderate, in sustained remission F11.21
[2023-06-28 13:03] VITALS: BP 130/80; PULSE 84; O2SAT 95
== END 2023-06-28 13:24 | disposition home or self-care (01) ==
PROVIDERS: PCP Internal Medicine; Visit Provider Nurse Practitioner Psychiatric/Mental Health
DX: F11.21 Opioid dependence, in remission (principal)
CPT/HCPCS: 99213

== ENCOUNTER → 2023-06-28 12:55 | Outpatient (BNVA) | payer BC, MEDICARE, SELFPAY | PROVIDERS: PCP Internal Medicine; Visit Provider Nurse Practitioner Psychiatric/Mental Health ==

== ENCOUNTER 2023-08-15 14:18 | Outpatient (AMB) | payer BC, MEDICARE, SELFPAY ==
[2023-08-15 14:25] VITALS: BP 140/80; PULSE 75; BMI 23.7
--- NOTE | 2023-08-15 14:25 | A.OFFVIS_ITS ---
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 Allergies acetaminophen [Tylenol] Allergy (Unknown, Verified 06/28/23 13:03) restless legs Antihistamines - Alkylamine [ANTIHISTAMINES - ALKYLAMINE] Allergy (Unknown, Verified 06/28/23 13:03) AGITATION Antihistamine Allergy (Unknown, Uncoded 06/28/23 13:03) itching Medication List - Last Reconciled 08/15/23 by Brian Chavez MD aspirin 81 mg PO DAILY atorvastatin 40 mg PO DAILY buprenorphine-naloxone 8-2 mg (Suboxone) 1 film sublingual TID cyclobenzaprine 10 mg PO BEDTIME isosorbide mononitrate ER 60 mg PO DAILY metformin 500 mg PO DAILY metoprolol succinate ER 75 mg (1.5 x 50 mg) PO DAILY 90 days nitroglycerin 0.4 mg sublingual ONCE HPI HPI Comments History of Present Illness Details Dagoberto comes for follow-up. Over the weekend he had multiple episodes of chest discomfort with minimal exertion. He took sublingual nitroglycerin with resolution of his chest pain. He is concerned about this chest pain. He denies any smoking. He has been taking all his medications. Denies any heart failure symptoms. Denies any lightheadedness, syncope. [facility] Medical History Chronic pain disorder Marijuana use Opioid use disorder Surgical History History of back surgery Family History Father Cancer Mother No problems noted. Social History Patient Tobacco Use Status: Former Tobacco user Quit Date: october 2022 Cigarettes Per Day: 10 Years Smoked: 30 Review of Systems Const Denies chills, Denies fatigue, Denies fever(s), Denies frequent falls, Denies weakness, Denies weight gain and Denies weight loss ENT Denies dizziness Card Denies chest pain, Denies leg edema, Denies lightheadedness, Denies palpitations, Denies dyspnea, Denies dyspnea on exertion, Denies orthopnea and Denies other (loss of consciousness) Resp Denies cough, Denies dyspnea and Denies dyspnea on exertion GI Denies hematochezia and Denies change in stool character Musc Denies abnormal gait, Denies muscle weakness, Denies numbness, Denies radiating pain into limb and Denies tingling Neuro Denies Abnormal speech present, Denies abnormal gait, Denies dizziness, Denies frequent falls, Denies numbness, Denies tingling and Denies weakness Endo Denies fatigue and Denies palpitations Physical Exam Vital Signs: Last Vital Signs Pulse 75 08/15/23 14:25 BP 140/80 H 08/15/23 14:25 BMI result Body Mass Index 23.7 Const General: cooperative, comfortable, no acute distress, alert, awake and Physically active Nutritional Appearance: thin Orientation/consciousness: patient oriented x3 Limitations: no limitations HEENT Head: Yes normocephalic and Yes atraumatic Neck Neck: Yes trachea midline, Yes supple and Yes no JVD Resp Effort & Inspection: normal respiratory effort Auscultation: clear to auscultation bilaterally Cardio Jugular venous distension: no JVD Palpation: normal PMI Rate: regular rate Rhythm: regular rhythm Heart sounds: S1 normal heart sound present, S2 normal heart sound present, no click, no gallops, no murmurs and no rubs GI Auscultation: normal bowel sounds Skin General skin exam: no rashes or lesions noted Neuro General: patient oriented x3 and no focal motor deficits Speech: No Abnormal speech present Extrem General: Yes no clubbing, cyanosis or edema Psych Appearance: grossly normal Assessment & Plan Assessment & Plan (1) [place]ol[place]mauro angina: Code(s): I20.0 - Unstable angina Plan: Patient with increasing symptoms of chest discomfort relieved with nitroglycerin with lesser exertion concerning for unstable pattern. He has not had any unrelieved chest pain. Advised to seek emergency care if he has unrelieved chest pain to sublingual nitroglycerin. Meanwhile will increase Toprol to 100 mg daily and isosorbide to 120 mg. Cardiac catheterization near future with aim for revascularization. Risks, benefits, alternatives were discussed with him. Will be scheduled in the next couple of days. Meanwhile continue low-dose aspirin therapy. Continue high-intensity statin therapy. Advised lipid panel in near future to assess response to Lipitor therapy to target goal LDL closer to 60 mg/dL. Will follow up in the clinic after cardiac catheterization. Thank you for allowing me to partake in his care Orders: Orders Complete Blood Count no Diff Today I25.10 - Atherosclerotic heart disease of [place] coronary artery without angina pectoris Prothrombin Time INR Today I25.10 - Atherosclerotic heart disease of [place] coronary artery without angina pectoris Lipid Panel Today I25.10 - Atherosclerotic heart disease of [place] coronary artery without angina pectoris Basic Metabolic Panel Today I25.10 - Atherosclerotic heart disease of [place] coronary artery without angina pectoris Medications: Changed From metoprolol succinate ER 75 mg (1.5 x 50 mg) PO DAILY 90 days 135 tabs 1RF To metoprolol succinate ER 100 mg (2 x 50 mg) PO DAILY 180 tabs 1RF 90 days From isosorbide mononitrate ER New dose - 60mg tablet. Take 1 tablet daily 60 mg PO DAILY 30 tabs 5RF To isosorbide mononitrate ER New dose - 60mg tablet. Take 1 tablet daily 120 mg (2 x 60 mg) PO DAILY 30 tabs 5RF Coding Level of Care Code Est Pt Level 4 (12540) Diagnoses Crescendo angina I20.0
== END 2023-08-15 15:04 | disposition home or self-care (01) ==
PROVIDERS: PCP Internal Medicine; Referring Provider Internal Medicine; Visit Provider Internal Medicine Cardiovascular Disease
DX: I20.0 Unstable angina (principal)
CPT/HCPCS: 93010; 99214

== ENCOUNTER → 2023-08-15 14:18 | Outpatient (BNVA) | payer BC, MEDICARE, SELFPAY | PROVIDERS: PCP Internal Medicine; Visit Provider Internal Medicine Cardiovascular Disease | DX: I20.0 Unstable angina (principal); Z79.82 Long term (current) use of aspirin; Z79.899 Other long term (current) drug therapy | CPT/HCPCS: 93005 ==

== ENCOUNTER 2023-08-16 07:55 | Outpatient (REF) | payer BC, MEDICARE, SELFPAY ==
[2023-08-16 11:22] LABS: Hematocrit 49.7 % (42.0-52.0); Hemoglobin 16.4 g/dl (14.0-18.0); Mean Corpuscular Hemoglobin 26.6 pg (27.0-33.0); Mean Corpuscular Volume 80.6 fL (80.0-98.0); Mean Platelet Volume 9.4 fL (9.4-12.4); Platelet Count 364 X10*3/uL (160-400); Red Blood Count 6.17 X10*6/uL (4.60-5.80); Red Cell Distribution Width 13.3 % (11.0-16.0); White Blood Count 11.2 X10*3/uL (4.8-10.8)
[2023-08-16 11:38] LABS: Prothrombin Time 12.4 SEC (11.1-13.3)
[2023-08-16 11:56] LABS: Anion Gap 14 (12-20); Blood Urea Nitrogen 14 mg/dL (9-16); Calcium 10.1 mg/dL (8.4-10.2); Carbon Dioxide 29 mmol/L (22-29); Chloride 98 mmol/L (96-108); Cholesterol 116 mg/dL (<200); Estimated Glomerular Filt Rate > 60; Glucose Random 234 mg/dL (60-115); HDL Cholesterol 30 mg/dL (>40); LDL Cholesterol Calculated 73 mg/dL (<100); Potassium 4.2 mmol/L (3.3-5.1); Sodium 137 mmol/L (135-145); Triglycerides 68 mg/dL (<150)
== END 2023-08-16 07:56 | disposition home or self-care (01) ==
LOC: HO.10HDL 07:55
PROVIDERS: Visit Provider Internal Medicine Cardiovascular Disease
DX: I25.10 Atherosclerotic heart disease of native coronary artery without angina pectoris (principal)
CPT/HCPCS: 36415; 80048; 80061; 85027; 85610

== ENCOUNTER → 2023-08-17 23:59 | Outpatient (BNV) | payer BC, MEDICARE, SELFPAY | PROVIDERS: PCP Internal Medicine; Visit Provider Internal Medicine Cardiovascular Disease | DX: I20.89 Other forms of angina pectoris (principal) | CPT/HCPCS: 92928; 92978; 99152 ==

== ENCOUNTER 2023-08-31 13:14 | Outpatient (AMB) | payer BC, MEDICARE, SELFPAY ==
--- NOTE | 2023-08-31 13:18 | A.OFFVIS_ITS ---
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 Allergies acetaminophen [Tylenol] Allergy (Unknown, Verified 08/31/23 13:22) restless legs Antihistamines - Alkylamine [ANTIHISTAMINES - ALKYLAMINE] Allergy (Unknown, Verified 08/31/23 13:22) AGITATION Antihistamine Allergy (Unknown, Uncoded 06/28/23 13:03) itching Medication List - Last Reconciled 08/31/23 by Madeleine Nava NP-C aspirin 81 mg PO DAILY atorvastatin 40 mg PO DAILY buprenorphine-naloxone 8-2 mg (Suboxone) 1 film sublingual TID clopidogrel (Plavix) 75 mg PO DAILY cyclobenzaprine 10 mg PO BEDTIME ezetimibe (Zetia) 10 mg PO DAILY isosorbide mononitrate ER 120 mg (2 x 60 mg) PO DAILY metformin 500 mg PO DAILY metoprolol succinate ER 100 mg (2 x 50 mg) PO DAILY 90 days nitroglycerin 0.4 mg sublingual ONCE HPI Follow up post cardiac cath HPI Details Dagoberto is a 68-year-old male with past medical history of hyperlipidemia, CAD, exertional angina who recently underwent a cardiac catheterization receiving LYDIA to the [facility] and now presenting for follow-up. Today he reports that since his stent placement he is feeling much better. Has not had any anterior chest discomfort since that time. He had been experiencing chest squeezing with exertional activities. He is very pleased with how he is doing at this time. No shortness of breath, palpitations, lightheadedness, pre syncope, syncope, PND, orthopnea or edema. His right radial catheterization site is feeling good. Has been walking for activity. Taking all meds as directed. [facility] Medical History Chronic pain disorder Marijuana use Opioid use disorder Surgical History History of cardiac cath History of back surgery Family History Father Cancer Mother No problems noted. Social History Patient Tobacco Use Status: Former Tobacco user Quit Date: october 2022 Cigarettes Per Day: 10 Years Smoked: 30 Review of Systems Const All systems reviewed & are unremarkable except as noted in HPI and below ENT Denies dizziness Card Denies chest pain, Denies chest pain at rest, Denies chest pain with activity, Denies rapid heart rate, Denies pedal edema, Denies edema, Denies leg edema, Denies lightheadedness, Denies palpitations, Denies dyspnea, Denies dyspnea on exertion and Denies orthopnea Resp Denies cough, Denies dyspnea and Denies dyspnea on exertion GI Denies hematochezia and Denies change in stool character Musc Details: right radial cath site feeling good Denies abnormal gait, Denies limited range of motion, Denies muscle cramps, Denies muscle weakness, Denies numbness, Denies radiating pain into limb, Denies stiffness and Denies tingling Neuro Denies abnormal gait, Denies dizziness, Denies numbness and Denies tingling Endo Denies palpitations Physical Exam Vital Signs: Last Vital Signs Pulse 91 08/31/23 13:19 BP 140/50 H 08/31/23 13:19 BMI result Body Mass Index 23.2 Const General: cooperative, healthy appearing, comfortable and no acute distress Orientation/consciousness: patient oriented x3 Neck Neck: Yes normal visual inspection and Yes no JVD Resp Effort & Inspection: normal respiratory effort Auscultation: clear to auscultation bilaterally, no crackles, no rales, no rhonchi and no wheezes Cardio Jugular venous distension: no JVD Rate: regular rate Rhythm: regular rhythm Heart sounds: S1 normal heart sound present, S2 normal heart sound present, no murmurs and no rubs Neuro General: patient oriented x3 Extrem General: Yes normal to inspection, No no pedal edema and No calf tenderness Psych Appearance: grossly normal Mental Status: mental status grossly normal Speech and movement: Normal speech and movement present Assessment & Plan Assessment & Plan (1) [place] angina: Code(s): I20.0 - Unstable angina Plan: On last visit reported exertional chest discomfort. 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 With the onset of his his exertional discomfort he then underwent a repeat catheterization on 08/16/2023 with angioplasty and stenting of the 1st OM. Today he reports significant improvement in how he feels. He no longer has any exertional chest discomfort. No chest discomfort at rest either. He is taking all meds as directed. He declines cardiac rehab. He will walking routinely for physical activity continue aspirin indefinitely. Continue Plavix uninterrupted for at least 1 yea r. Continue atorvastatin and Zetia with ideal LDL goal less than 70. Continue isosorbide and metoprolol. Cardiology follow-up in 3 months, sooner if needed to re-evaluate for symptoms. (2) Coronary atherosclerosis: Code(s): I25.10 - Atherosclerotic heart disease of [place] coronary artery without angina pectoris Plan: As above (3) S/P cardiac cath: Comment: 01/2023, lad mid 40% stenosis, 1st OM 95% stenosis, left PDA, proximal 100% stenosis, TECHNICAL ACCOUNT REPRESENTATIVE with [id number] collateral, RCA moderate disease - medical management, if he has recurrent angina then planned PCI of OM1 Code(s): Z98.890 - Other specified postprocedural states Plan: As above (4) S/P cardiac cath: Comment: 08/16/2023, left circumflex 1st OM 90% stenosis, dilated with balloon and stent placed Code(s): Z98.890 - Other specified postprocedural states Plan: Right radial catheterization site well healed (5) Hyperlipidemia: Code(s): E78.5 - Hyperlipidemia, unspecified Plan: [place] LDL goal than 70. He is currently on atorvastatin 40 mg daily and Zetia 10 mg daily. Labs done 08/16/2023 showed LDL 73, near goal. Will increase his atorvastatin up to 80 mg daily, continues at [facility]. Will have him obtain a fasting lipid profile before his next visit. Plan Time spent on chart review, documentation, interview and assessment Medications: New atorvastatin Dose increased for better cholesterol control Take 1 tablet daily at bedtime 80 mg PO BEDTIME 90 tabs 1RF 90 days Discontinued atorvastatin Discontinued Reason: Doctor's Order 40 mg PO DAILY 90 tabs 3RF R07.9 - Chest pain, unspecified Coding Level of Care Code Est Pt Level 4 (15853) Diagnoses Crescendo angina I20.0 Coronary atherosclerosis I25.10 S/P cardiac cath Z98.890 Hyperlipidemia E78.5 Time Spent (min) 28
[2023-08-31 13:19] VITALS: BP 140/50; PULSE 91; BMI 23.2
== END 2023-08-31 13:42 | disposition home or self-care (01) ==
PROVIDERS: PCP Internal Medicine; Visit Provider Nurse Practitioner Family
DX: I25.119 Atherosclerotic heart disease of native coronary artery with unspecified angina pectoris (principal); E78.5 Hyperlipidemia, unspecified
CPT/HCPCS: 99214

== ENCOUNTER → 2023-08-31 13:14 | Outpatient (BNVA) | payer BC, MEDICARE, SELFPAY | PROVIDERS: PCP Internal Medicine; Visit Provider Nurse Practitioner Family ==

== ENCOUNTER 2023-09-12 10:26 | Outpatient (AMB) | payer BC, MEDICARE, SELFPAY ==
--- NOTE | 2023-09-12 10:36 | MHC.AM.SUB ---
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 Allergies acetaminophen [Tylenol] Allergy (Unknown, Verified 09/12/23 10:50) restless legs Antihistamines - Alkylamine [ANTIHISTAMINES - ALKYLAMINE] Allergy (Unknown, Verified 09/12/23 10:50) AGITATION Antihistamine Allergy (Unknown, Uncoded 09/12/23 10:50) itching Do you need a note to return to daycare/school/sports/work: No HPI mat visit HPI Details Patient presents for MAT visit Reports he recently (3 weeks ago) had a cardiac stent placed Reports the procedure went well and he is feeling well Reports he is coming down with a cold, cough and some congestion x 1 day Has no concerns related to recovery Stable on current dose suboxone 8mg tid PFSH Medical History Chronic pain disorder Marijuana use Opioid use disorder Surgical History History of cardiac cath History of back surgery Family History Father Cancer Mother No problems noted. Social History Patient Tobacco Use Status: Former Tobacco user Quit Date: october 2022 Cigarettes Per Day: 10 Years Smoked: 30 Review of Systems Const Reports as per HPI ENT Reports nasal congestion Resp Reports cough Physical Exam Vital Signs: Last Vital Signs Pulse 96 09/12/23 10:45 BP 148/88 H 09/12/23 10:45 Pulse Ox 92 09/12/23 10:45 Oxygen Delivery Method Room Air 09/12/23 10:45 BMI result Body Mass Index 24.9 Const General: cooperative and no acute distress Resp Effort & Inspection: normal respiratory effort and able to speak in complete sentences Psych Appearance: grossly normal Mental Status: mental status grossly normal Speech and movement: Normal speech and movement present Attitude: cooperative Assessment & Plan Assessment & Plan (1) Opioid use disorder, moderate, in sustained remission: Code(s): F11.21 - Opioid dependence, in remission Plan: -Continue suboxone at current dose -Follow up 3 months -Reviewed to call [facility] with questions or concerns Medications: Refilled buprenorphine-naloxone 8-2 mg (Suboxone) 1 film sublingual TID 90 ea 2RF Coding Level of Care Code Est Pt Level 3 (23982) Diagnoses Opioid use disorder, moderate, in sustained remission F11.21
[2023-09-12 10:45] VITALS: BP 148/88; PULSE 96; O2SAT 92; BMI 24.9
== END 2023-09-12 11:15 | disposition home or self-care (01) ==
PROVIDERS: PCP Internal Medicine; Visit Provider Nurse Practitioner Family
DX: F11.21 Opioid dependence, in remission (principal)
CPT/HCPCS: 99213

== ENCOUNTER → 2023-09-12 10:26 | Outpatient (BNVA) | payer BC, MEDICARE, SELFPAY | PROVIDERS: PCP Internal Medicine; Visit Provider Nurse Practitioner Family ==

== ENCOUNTER 2023-09-20 15:28 | Outpatient (REF) | payer BC, MEDICARE, SELFPAY ==
--- NOTE | ~2023-09-20 | XR_ITS ---
EXAMINATION: XR CHEST CLINICAL INFORMATION: Cough. Shortness of breath. COMPARISON: None available. TECHNIQUE: 2 views of the chest were obtained. FINDINGS: Examination demonstrates a focal left lower lobe density consistent with consolidative infiltrate, atelectasis, and/or or pleural fluid. Superimposed, approximately 5.5 cm left infrahilar mass cannot be confirmed or excluded. Question subtle right lower lobe focal infiltrate, equivocal. No effusion is seen on the right. No pneumothorax is appreciated. The heart appears normal in size. The aorta is mildly sclerotic and uncoiled, suggesting hypertension. Mild degenerative changes of the spine. XR/XR chest 2V IMPRESSION: Focal left lower lobe density consistent with consolidative infiltrate, atelectasis, and/or or pleural fluid. Superimposed, approximately 5.5 cm left infrahilar mass cannot be confirmed or excluded. CT scan with contrast is recommended for further evaluation. Question subtle right lower lobe focal infiltrate, equivocal.
[2023-09-20 15:59] LABS: MANUAL DIFF FLAG NO
[2023-09-20 16:27] LABS: Basophils Absolute Auto 0.1 X10*3/uL (0.0-0.2); Basophils Percent Auto 0.6 % (0-2); Eosinophils Absolute Auto 0.1 X10*3/uL (0.0-0.4); Eosinophils Percent Auto 0.4 % (0-4); Hematocrit 43.6 % (42.0-52.0); Hemoglobin 14.4 g/dl (14.0-18.0); Imm Gran Pct Auto 0.7 % (0.0-0.4); Lymphocytes Absolute Auto 1.7 X10*3/uL (1.2-4.9); Lymphocytes Percent Auto 12.8 % (20-40); Mean Corpuscular Hemoglobin 26.1 pg (27.0-33.0); Mean Corpuscular Volume 79.1 fL (80.0-98.0); Mean Platelet Volume 9.4 fL (9.4-12.4); Monocytes Absolute Auto 0.8 X10*3/uL (0.1-1.2); Monocytes Percent Auto 5.7 % (2-11); Neutrophils Absolute Auto 10.8 x10*3/uL (2.0-8.3); Neutrophils Percent Auto 79.8 % (45-73); Platelet Count 501 X10*3/uL (160-400); Red Blood Count 5.51 X10*6/uL (4.60-5.80); Red Cell Distribution Width 14.2 % (11.0-16.0); White Blood Count 13.5 X10*3/uL (4.8-10.8)
[2023-09-20 16:52] LABS: Influenza A PCR NEGATIVE (Negative); Influenza B PCR NEGATIVE (Negative); Resp Syncy Virus RNA Qual PCR NEGATIVE (Negative); SARS COV2 PCR INHOUSE NEGATIVE (Negative)
[2023-09-20 17:53] LABS: Alanine Aminotransferase 71 U/L (0-40); Albumin Level 3.2 g/dL (3.5-5.0); Alkaline Phosphatase 154 U/L (39-117); Anion Gap 14 (12-20); Aspartate Amino Transferase 65 U/L (5-37); Bilirubin Total 0.4 mg/dL (0.0-1.0); Blood Urea Nitrogen 20 mg/dL (9-16); C Reactive Protein 15.28 mg/dL (< or = 0.50); Calcium 9.9 mg/dL (8.4-10.2); Carbon Dioxide 31 mmol/L (22-29); Chloride 93 mmol/L (96-108); Estimated Glomerular Filt Rate > 60; Glucose Random 294 mg/dL (60-115); Potassium 3.7 mmol/L (3.3-5.1); Sodium 134 mmol/L (135-145); Total Protein 7.6 g/dL (6.5-8.0)
[2023-09-20 17:56] LABS: D Dimer High Sensitivity 362 NG/ML
== END 2023-09-20 15:29 | disposition home or self-care (01) ==
LOC: HO.XRAY 15:28
PROVIDERS: PCP Internal Medicine; Visit Provider Internal Medicine
DX: R05.9 Cough, unspecified (principal); R06.02 Shortness of breath; R07.89 Other chest pain; Z11.52 Encounter for screening for COVID-19; Z20.822 Contact with and (suspected) exposure to COVID-19
CPT/HCPCS: 0241U; 36415; 71046; 80053; 85025; 85379; 86140

== ENCOUNTER 2023-09-22 09:15 | Emergency (ER) | payer BC, MEDICARE, SELFPAY ==
--- NOTE | ~2023-09-22 | CT_ITS ---
EXAMINATION: CT CHEST WITH CONTRAST CLINICAL INFORMATION: Chest pain. Shortness of breath. COMPARISON: Chest radiographs 09/20/2023 TECHNIQUE: Multidetector volumetric CT imaging of the chest was obtained after the administration of 65 mL of Omnipaque 350 intravenous contrast without immediate adverse reactions. Axial MIP volume rendering provided. Sagittal and coronal reformatted images were obtained. This CT examination was performed using dose optimization techniques as appropriate, variously including the following: *Automated exposure control *Adjustment of mA and/or kV according to patient size (this includes techniques or standardized protocols for targeted exams where dose is matched to indication/reason for exam; i.e. extremities or head) *Use of iterative reconstruction technique DLP: 242 mGy-cm FINDINGS: LUNGS: Moderate centrilobular emphysema. There is extensive masslike consolidation in the left lower lobe. There is abrupt cut off of the left lower lobe bronchus with likely endobronchial filling defect. There are no air bronchograms as would be expected in the setting of pneumonia. There is heterogeneity of the consolidation with possible underlying necrosis. There is associated volume loss in the left lower lobe with retraction of the major fissure. 7 mm nodule right middle lobe on image 274 series 5. Mild diffuse bronchiectasis. The trachea is patent. MEDIASTINUM: Imaged thyroid gland is normal. No axillary lymphadenopathy. Prominent mediastinal and bilateral hilar lymph nodes. Ascending thoracic aorta measures 4.0 x 4.1 cm in transverse dimension. Heart size is normal. No pericardial effusion. Marked coronary artery calcifications. PLEURA: Trace left pleural effusion. UPPER ABDOMEN: Hepatic steatosis. OSSEOUS STRUCTURES: No destructive bone lesions. CT/CT chest w IV con IMPRESSION: Extensive masslike consolidation in the left lower lobe with abrupt termination of the left lower lobe bronchus with likely endobronchial filling defect. Findings are more concerning for tumor and less likely pneumonia given the lack of air bronchograms. Consultation with pulmonology is advised. PET/CT may be considered. Prominent mediastinal and bilateral hilar lymph nodes. 7 mm right middle lobe nodule.
[2023-09-22 09:19] VITALS: BP 111/71; PULSE 86; RESP 22; TEMP 36.1; O2SAT 95; BMI 22.5
--- NOTE | 2023-09-22 09:24 | ED.GENADULT ---
HPI - General Adult General Chief complaint: Upper Respiratory Symptoms Stated complaint: infection ? Time Seen by Provider: 09/22/23 09:23 Source: patient Mode of arrival: ambulatory Limitations: no limitations History of Present Illness HPI narrative: Patient is a 68 year old assigned male at with a history of chronic pain disorder, CAD, and opioid use disorder presenting to the emergency department today for possible pneumonia. Patient states that he was seen by his PCP recently and was called today told that he has pneumonia but needs further evaluation and treatment here in the emergency department. Patient states that he quit smoking tobacco 8 months ago but before that was 1/2 pack every other day. Patient states that he has had some SOB and chills over the last 10 days. Patient denies any dizziness, lightheadedness, abdominal pain, nausea, vomiting, fever, blurry vision, double vision, loss of vision, chest pain, back pain, night sweats, pain with urination, increased urinary frequency, increased urinary urgency, blood in his urine or stool, syncope or a near syncopal episode, recent trauma or falls, bowel incontinence, bladder incontinence, bowel retention, bladder retention, or any other complaints at this time. Onset (ago): day(s) (10) Severity: mild Severity scale (1-10): 3 Relieving factors: none Exacerbating factors: none Associated symptoms: fever/chills and shortness of breath Treatments prior to arrival: none Related Data Home Medications Medication Instructions Recorded Confirmed cyclobenzaprine 10 mg tablet 10 mg PO BEDTIME 02/14/23 08/31/23 metformin 500 mg tablet 500 mg PO DAILY 02/14/23 08/31/23 aspirin 81 mg tablet,delayed 81 mg PO DAILY 03/16/23 08/31/23 release Previous Rx's Medication Instructions Recorded nitroglycerin 0.4 mg sublingual 0.4 mg sublingual ONCE #25 tabs 04/07/23 tablet isosorbide mononitrate 60 mg 120 mg (2 x 60 mg) PO DAILY #30 08/15/23 tablet,extended release 24 hr tabs metoprolol succinate 50 mg 100 mg (2 x 50 mg) PO DAILY 90 08/15/23 tablet,extended release 24 hr days #180 tabs clopidogrel 75 mg tablet (Plavix) 75 mg PO DAILY #30 tabs 08/16/23 ezetimibe 10 mg tablet (Zetia) 10 mg PO DAILY #30 tabs 08/16/23 atorvastatin 80 mg tablet 80 mg PO BEDTIME 90 days #90 tabs 09/01/23 buprenorphine 8 mg-naloxone 2 mg 1 film sublingual TID #90 ea 09/12/23 sublingual film (Suboxone) doxycycline hyclate 100 mg tablet 100 mg PO BID 7 days #14 tabs 09/22/23 Allergies Allergy/AdvReac Type Severity Reaction Status Date / Time acetaminophen [Tylenol] Allergy Unknown restless Verified 09/12/23 10:50 legs Antihistamines - Alkylamine Allergy Unknown AGITATION Verified 09/12/23 10:50 [ANTIHISTAMINES - ALKYLAMINE] Antihistamine Allergy Unknown itching Uncoded 09/12/23 10:50 Review of Systems Constitutional: Constitutional: Reports no additional constitutional complaints, Reports chills, Denies fever(s) and Denies night sweats Eyes: Eyes: Reports no additional eye complaints, Denies blurry vision, Denies change in vision, Denies diplopia, Denies eye discharge, Denies loss of vision and Denies eye pain ENT: Denies dizziness Cardiovascular: Cardiovascular: Reports no additional cardiovascular complaints, Denies chest pain, Denies lightheadedness, Denies Loss of Consciousness and Reports dyspnea (intermittent) Respiratory: Respiratory: Reports no additional respiratory complaints and Reports dyspnea (intermittent) Gastrointestinal: Gastrointestinal: Reports no additional gastrointestinal complaints, Denies abdominal pain, Denies melena, Denies hematochezia, Denies change in bowel habits and Denies change in stool character Genitourinary: Genitourinary: Reports no additional male genitourinary complaints, Denies hematuria, Denies oliguria, Denies difficulty urinating, Denies dysuria, Denies urinary frequency, Denies urinary hesitancy, Denies urinary incontinence and Denies urinary urgency Musculoskeletal: Musculoskeletal: Reports no additional musculoskeletal complaints, Denies numbness and Denies tingling Neurologic: Denies dizziness, Denies loss of vision, Denies numbness and Denies tingling Psychiatric: Psychiatric: Reports no additional psychiatric complaints Endocrine: Endocrine: Reports no additional endocrine complaints Hematologic/Lymphatic: Hematologic/Lymphatic: Reports no additional hematologic/lymphatic complaints Allergic/Immunologic: Allergic/Immunologic: Reports no additional allergic/immunologic complaints PMFSH Past Medical History Attestation statement: The following information was validated with the patient. Source: old records reviewed and nursing notes reviewed Medical History Chronic pain disorder Marijuana use Opioid use disorder Surgical History History of cardiac cath History of back surgery Family History Family History Father Cancer Mother No problems noted. Social History Social History Patient Tobacco Use Status: Former Tobacco user Quit Date: october 2022 Cigarettes Per Day: 10 Years Smoked: 30 Smoked in Last 30 Days: No Use of substances other than those prescribed or required for medical reasons: No Advance Directives: No Advance Directives Information Provided: Yes Physical Exam ED Vital Signs: Vital Signs - 24 hr 09/22/23 09:19 09/22/23 11:24 09/22/23 11:24 Temperature 97.0 F 97.7 F Pulse Rate 86 64 Respiratory Rate 22 H 20 Blood Pressure 111/71 Pulse Oximetry 95 96 96 Oxygen Delivery Method Room Air Room Air Room Air 09/22/23 11:30 09/22/23 14:02 Temperature Pulse Rate 67 Respiratory Rate 20 Blood Pressure 145/72 H 161/91 H Pulse Oximetry 96 Oxygen Delivery Method Room Air BMI result Body Mass Index 22.5 Const General: cooperative, no acute distress, alert and awake Nutritional Appearance: well nourished Orientation/consciousness: patient oriented x3 Limitations: no limitations HENMT Head: Yes normal to inspection and Yes atraumatic Ears: hearing grossly normal bilaterally and external ears normal General nose exam: Normal external nose present, no nasal discharge noted and no epistaxis Face and sinus: Yes normal facial exam, No abrasion and No laceration Mouth: Normal oral and palatal mucosa present, no drooling and no muffled voice Eyes General: appearance normal, both eyes and all related structures Periorbital: periorbital findings normal Eyelids: Yes eyelids normal Conjunctivae: conjunctivae normal Pupils: Equal, round and reactive pupils present EOM: EOMs intact bilaterally Neck Neck: Yes normal visual inspection, Yes full ROM and Yes no lymphadenopathy Chest Chest palpation & inspection: normal inspection of the chest Resp Effort & Inspection: normal respiratory effort and able to speak in complete sentences Auscultation: diminished lung sounds diffuse GI Inspection: Yes normal to inspection Neuro General: patient oriented x3 and moves all extremities Cranial nerves: Yes Equal, round and reactive pupils present Cognition (Neuro): normal cognition Motor exam (neuro): 5/5 motor strength present throughout Sensory Exam: Normal double simultaneous stimulation for sensation Coordination: [id number] test normal Extrem General: Yes normal to inspection, Yes full ROM and Yes capillary refill normal Psych Appearance: grossly normal Mental Status: mental status grossly normal Affect: normal affect Attitude: cooperative Thought process: Normal thought process present Thought content: Normal thought content present Insight: Good insight present (Psych) Medications Administered Discontinued Medications Generic Name Dose Route Start Last Admin Trade Name Freq PRN Reason Stop Dose Admin Sodium Chloride 1,000 mls @ 999 mls/hr 09/22/23 11:00 09/22/23 12:20 Ns IV 09/22/23 12:00 Infused .Q1H1M TOÑITO Infusion Ceftriaxone Sodium 1 gm/ 50 mls @ 100 mls/hr 09/22/23 12:29 09/22/23 13:45 Sodium Chloride IV 09/22/23 12:58 Infused ONCE ONE Infusion Iohexol 100 ml 09/22/23 11:17 09/22/23 11:18 Iohexol 350 Mg/Ml 100 Ml Infus..Btl IV 09/22/23 11:18 65 ml ONCE ONE Administration Medical Decision Making Medical Decision Making MDM Narrative: Patient is a 68 year old assigned male at with a history of chronic pain disorder, CAD, and opioid use disorder presenting to the emergency department today with a cough and further evaluation after having an abnormal chest x-ray. Patient's physical exam was as noted in the physical exam portion of this note. Patient's blood work showed an elevated WBC count of 13.6, BUN 17, and an initially elevated lactic of 2.9 with a repeat after 1 liter of NS of 1.1. The rest of the patient's labs were unremarkable. Patient's chest CT showed evidence of malignancy in the left lower lung lobe. Given patient's 10 days of acute symptoms, will cover for superimposed PNA. Patient's current clinical presentation is not consistent with sepsis. I explained my physical exam findings as well as all test results to the patient. I answered all questions asked by the patient. I stressed the importance of the patient taking his medication as prescribed. I stressed the importance of the patient following up with his primary care provider, a pulmonogist, and an oncologist. I stressed the importance of the patient returning to the emergency department immediately if his symptoms were to worsen or if he were to develop any dizziness, shortness of breath, difficulty breathing, chest pain, blurry vision, loss of vision, nausea, vomiting, abdominal pain, fever, chills, back pain, or any other complaints. Patient verbalized agreement and understanding with this treatment plan and discharge. Differential Diagnosis Differential Diagnoses: The differential diagnosis associated with the presentation includes PNA Lung cancer Mass Admission/Observation Consideration of admission/observation: Escalation of care including admission/observation considered Patient would have been admitted to the hospital had his work up had any findings where hospital admission was appropriate and his clinical presentation warranted hospital admission. Lab Data [facility] Lab Attestation statement: I reviewed the patient's lab results. My interpretation of these results are in the [facility] Rationale portion of this note. 09/22/23 09:40 09/22/23 09:40 Labs: Lab Results 09/22/23 09/22/23 Range/Units 09:40 12:07 WBC 13.6 H (4.8-10.8) X10*3/uL RBC 5.41 (4.60-5.80) X10*6/uL Hgb 14.2 (14.0-18.0) g/dl Hct 42.7 (42.0-52.0) % MCV 78.9 L (80.0-98.0) fL MCH 26.2 L (27.0-33.0) pg MCHC 33.3 (31.0-36.0) g/dl RDW 14.6 (11.0-16.0) % Plt Count 496 H (160-400) X10*3/uL MPV 9.2 L (9.4-12.4) fL Immature Gran % (Auto) 1.0 H (0.0-0.4) % Neut % (Auto) 79.1 H (45-73) % Lymph % (Auto) 14.3 L (20-40) % Dickinson % (Auto) 4.9 (2-11) % Eos % (Auto) 0.3 (0-4) % Baso % (Auto) 0.4 (0-2) % Lymph # (Auto) 1.9 (1.2-4.9) X10*3/uL Dickinson # (Auto) 0.7 (0.1-1.2) X10*3/uL Eos # (Auto) 0.0 (0.0-0.4) X10*3/uL Baso # (Auto) 0.1 (0.0-0.2) X10*3/uL Abs Immat Gran (auto) 0.13 H (0.00-0.03) X10*3/uL Absolute Neuts (auto) 10.7 H (2.0-8.3) x10*3/uL Absolute Nucleated RBC 0.000 (0.0-0.012) X10*3/uL Nucleated RBC % (auto) 0.0 (0.0-0.2) /100WBC Sodium 139 (135-145) mmol/L Potassium 4.2 (3.3-5.1) mmol/L Chloride 96 (96-108) mmol/L Carbon Dioxide 31 H (22-29) mmol/L Anion Gap 16 (12-20) BUN 17 H (9-16) mg/dL Creatinine 0.81 (0.5-1.4) mg/dL Estim Creat Clear Calc 90.2 Estimated GFR > 60 Random Glucose 247 H (60-115) mg/dL Lactic Acid 2.9 H* (0.5-2.0) mmol/L Lactic Acid F/U @ 2Hr 1.1 (0.5-2.0) mmol/L Calcium 10.1 (8.4-10.2) mg/dL Total Bilirubin 0.6 (0.0-1.0) mg/dL AST 49 H (5-37) U/L ALT 59 H (0-40) U/L Alkaline Phosphatase 130 H (39-117) U/L Total Protein 7.8 (6.5-8.0) g/dL Albumin 3.2 L (3.5-5.0) g/dL Independent Interpretation I performed an independent interpretation of an: CT Scan Interpretation: My interpretation is in agreement with the radiologist's impression of this imaging study. EXAMINATION: CT CHEST WITH CONTRAST CLINICAL INFORMATION: Chest pain. Shortness of breath. COMPARISON: Chest radiographs 09/20/2023 TECHNIQUE: Multidetector volumetric CT imaging of the chest was obtained after the administration of 65 mL of Omnipaque 350 intravenous contrast without immediate adverse reactions. Axial MIP volume rendering provided. Sagittal and coronal reformatted images were obtained. This CT examination was performed using dose optimization techniques as appropriate, variously including the following: *Automated exposure control *Adjustment of mA and/or kV according to patient size (this includes techniques or standardized protocols for targeted exams where dose is matched to indication/reason for exam; i.e. extremities or head) *Use of iterative reconstruction technique DLP: 242 mGy-cm FINDINGS: LUNGS: Moderate centrilobular emphysema. There is extensive masslike consolidation in the left lower lobe. There is abrupt cut off of the left lower lobe bronchus with likely endobronchial filling defect. There are no air bronchograms as would be expected in the setting of pneumonia. There is heterogeneity of the consolidation with possible underlying necrosis. There is associated volume loss in the left lower lobe with retraction of the major fissure. 7 mm nodule right middle lobe on image 274 series 5. Mild diffuse bronchiectasis. The trachea is patent. MEDIASTINUM: Imaged thyroid gland is normal. No axillary lymphadenopathy. Prominent mediastinal and bilateral hilar lymph nodes. Ascending thoracic aorta measures 4.0 x 4.1 cm in transverse dimension. Heart size is normal. No pericardial effusion. Marked coronary artery calcifications. PLEURA: Trace left pleural effusion. UPPER ABDOMEN: Hepatic steatosis. OSSEOUS STRUCTURES: No destructive bone lesions. CT/CT chest w IV con IMPRESSION: Extensive masslike consolidation in the left lower lobe with abrupt termination of the left lower lobe bronchus with likely endobronchial filling defect. Findings are more concerning for tumor and less likely pneumonia given the lack of air bronchograms. Consultation with pulmonology is advised. PET/CT may be considered. Prominent mediastinal and bilateral hilar lymph nodes. 7 mm right middle lobe nodule. Dictated By: Carmel Azevedo MD Signed By: Electronically signed by Carmel Azevedo MD 09/22/23 [id number] Radiology Impression Discussion of test interpretation with radiology: I have reviewed the radiologist's reading. Prescription Management I considered prescription management with: Antibiotic (patient prescribed an antibiotic to cover for superimposed PNA) Critical Care Time Critical Care Time Critical Care Time: Yes Total Critical Care Time: 45 Attestation: I spent 45 minutes of Critical Care Time with this patient. This does not include time spent on separately reported billable procedures. Discharge Plan Discharge Clinical Impression: Community acquired pneumonia, Lung cancer Patient Disposition: Home, Self-Care Instructions: Lung Cancer (DC), Community Acquired Pneumonia (DC) Additional Instructions: Follow up with your primary care provider, a automotive center manager, and an oncologist. Return to the emergency department immediately if your symptoms worsen or if you develop any dizziness, shortness of breath, difficulty breathing, chest pain, blurry vision, loss of vision, nausea, vomiting, abdominal pain, fever, chills, back pain, or any other complaints. Prescriptions: New doxycycline hyclate 100 mg tablet 100 mg PO BID 7 Days Qty: 14 0RF No Action nitroglycerin 0.4 mg tablet, sublingual 0.4 mg sublingual ONCE Qty: 25 2RF ezetimibe [Zetia] 10 mg tablet 10 mg PO DAILY Qty: 30 5RF clopidogrel [Plavix] 75 mg tablet 75 mg PO DAILY Qty: 30 2RF aspirin 81 mg tablet,delayed release (DR/EC) 81 mg PO DAILY buprenorphine-naloxone [Suboxone] 8-2 mg film 1 film sublingual TID Qty: 90 2RF metformin 500 mg tablet 500 mg PO DAILY cyclobenzaprine 10 mg tablet 10 mg PO BEDTIME metoprolol succinate 50 mg tablet extended release 24 hr 100 mg PO DAILY 90 Days Qty: 180 1RF isosorbide mononitrate 60 mg tablet extended release 24 hr 120 mg PO DAILY Qty: 30 5RF Rx Instructions: New dose - 60mg tablet. Take 1 tablet daily atorvastatin 80 mg tablet 80 mg PO BEDTIME 90 Days Qty: 90 1RF Rx Instructions: Dose increased for better cholesterol control Take 1 tablet daily at bedtime Referrals: [facility] [place] Oncology/Hematology [Provider Group] (Call to establish and follow up with an oncologist. ) Thony Wagner MD [Primary Care Provider] - Rahul Gilmore MD [Physician] - (Call to establish and follow up with a automotive center manager. ) Interventions: ED Discharge Assessment Last Done: 09/22/23 13:59 Discharge Date/Time: 09/22/23 14:06 Print Language: Turkmen
[2023-09-22 10:02] LABS: MANUAL DIFF FLAG NO
[2023-09-22 10:05] LABS: Basophils Absolute Auto 0.1 X10*3/uL (0.0-0.2); Basophils Percent Auto 0.4 % (0-2); Eosinophils Percent Auto 0.3 % (0-4); Hematocrit 42.7 % (42.0-52.0); Hemoglobin 14.2 g/dl (14.0-18.0); Imm Gran Abs Auto 0.13 X10*3/uL (0.00-0.03); Lymphocytes Absolute Auto 1.9 X10*3/uL (1.2-4.9); Lymphocytes Percent Auto 14.3 % (20-40); Mean Corpuscular HGB Conc 33.3 g/dl (31.0-36.0); Mean Corpuscular Hemoglobin 26.2 pg (27.0-33.0); Mean Corpuscular Volume 78.9 fL (80.0-98.0); Mean Platelet Volume 9.2 fL (9.4-12.4); Monocytes Absolute Auto 0.7 X10*3/uL (0.1-1.2); Monocytes Percent Auto 4.9 % (2-11); Neutrophils Absolute Auto 10.7 x10*3/uL (2.0-8.3); Neutrophils Percent Auto 79.1 % (45-73); Platelet Count 496 X10*3/uL (160-400); Red Blood Count 5.41 X10*6/uL (4.60-5.80); Red Cell Distribution Width 14.6 % (11.0-16.0); White Blood Count 13.6 X10*3/uL (4.8-10.8)
[2023-09-22 10:33] LABS: Alanine Aminotransferase 59 U/L (0-40); Albumin Level 3.2 g/dL (3.5-5.0); Alkaline Phosphatase 130 U/L (39-117); Anion Gap 16 (12-20); Aspartate Amino Transferase 49 U/L (5-37); Bilirubin Total 0.6 mg/dL (0.0-1.0); Blood Urea Nitrogen 17 mg/dL (9-16); Calcium 10.1 mg/dL (8.4-10.2); Carbon Dioxide 31 mmol/L (22-29); Chloride 96 mmol/L (96-108); Creatinine Clr Calc Pharmacy 90.2; Estimated Glomerular Filt Rate > 60; Glucose Random 247 mg/dL (60-115); Potassium 4.2 mmol/L (3.3-5.1); Sodium 139 mmol/L (135-145); Total Protein 7.8 g/dL (6.5-8.0)
[2023-09-22 10:48] LABS: Lactic Acid 2.9 mmol/L (0.5-2.0)
[2023-09-22] MEDS: iohexoL 350 MG/ML 100 ML INFUS..BTL IV (11:18)
[2023-09-22] MEDS: 0.9 % Sodium Chloride 1,000 ML 999 ML IV (11:18)
[2023-09-22 11:24] VITALS: PULSE 64; RESP 20; TEMP 36.5; O2SAT 96
[2023-09-22 11:30] VITALS: BP 145/72
[2023-09-22 12:00] LABS: Reflex Lactate? Lactic Acid Added
--- NOTE | 2023-09-22 12:10 | PC.NURSE ---
lactic sent. no resp distress. intermittent cough. resting. per radha head to have ice chips.
[2023-09-22 12:28] LABS: ~Lactic Acid-LAB USE ONLY 1.1 mmol/L (0.5-2.0)
[2023-09-22] MEDS: cefTRIAXone sodium 1 GM in 0.9 % Sodium Chloride 50 ML IV (13:12)
[2023-09-22 14:02] VITALS: BP 161/91; PULSE 67; RESP 20; O2SAT 96
== END 2023-09-22 14:06 | disposition home or self-care (01) ==
PROVIDERS: Physician Assistant; Physician Assistant Medical; Emergency Provider Emergency Medicine Emergency Medical Services; PCP Internal Medicine
DX: J18.9 Pneumonia, unspecified organism (principal); C34.32 Malignant neoplasm of lower lobe, left bronchus or lung; Z87.891 Personal history of nicotine dependence
CPT/HCPCS: 36415; 71260; 80053; 83605; 85025; 87040; 96361; 96365; 99284; 99285; J0696; Q9967

== ENCOUNTER → 2023-10-03 15:20 | Outpatient (BNV) | payer BC, SELFPAY | PROVIDERS: PCP Internal Medicine; Referring Provider Internal Medicine; Visit Provider Internal Medicine | DX: C34.32 Malignant neoplasm of lower lobe, left bronchus or lung (principal) | CPT/HCPCS: 99205; 99215 ==

== ENCOUNTER 2023-10-06 15:00 | Outpatient (AMB) | payer BC, SELFPAY ==
[2023-10-06 15:10] VITALS: BP 142/80; PULSE 110; O2SAT 93; BMI 22.2
--- NOTE | 2023-10-06 15:10 | MHC.OFFVIS ---
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 [employer] Casting: [employer] offered & declined Accompanied by: Spouse Allergies acetaminophen [Tylenol] Allergy (Unknown, Verified 10/06/23 15:15) restless legs Antihistamines - Alkylamine [ANTIHISTAMINES - ALKYLAMINE] Allergy (Unknown, Verified 10/06/23 15:15) AGITATION Antihistamine Allergy (Unknown, Uncoded 10/06/23 15:15) itching Medication List - Last Reconciled 10/06/23 by Carol Lance LPN aspirin 81 mg PO DAILY atorvastatin 80 mg PO BEDTIME 90 days buprenorphine-naloxone 8-2 mg (Suboxone) 1 film sublingual TID clopidogrel (Plavix) 75 mg PO DAILY cyclobenzaprine 10 mg PO BEDTIME ezetimibe (Zetia) 10 mg PO DAILY isosorbide mononitrate ER 120 mg (2 x 60 mg) PO DAILY metformin 500 mg PO DAILY metoprolol succinate ER 100 mg (2 x 50 mg) PO DAILY 90 days nitroglycerin 0.4 mg sublingual ONCE oxycodone 10 mg PO Q4H PRN HPI Lung Mass HPI Details Dagoberto is pleasant 68 year old male, former smoker with 30 pack year history, quit 8 months ago, with underlying COPD, ROBBIE not on CPAP, CAD s/p stent in July on plavix and ASA, DMII and h/o of chronic opioid use now managed on suboxone. He was referred by [facility] [place] [facility] for pulmonary evaluation. He was evaluated in the ED for 10 days of fatigue, dyspnea, pleuritic chest pain and chills, ultimately being diagnosed with pneumonia and treated with doxycyline. CT revealed extensive masslike consolidation in the left lower lobe, concerning for malignancy. Also being referred to oncology. He noted unintentional weight loss of 20-30 lbs over the last year and new onset headaches, and will be having a brain MRI scheduled for Monday, scheduled by oncology. At baseline, he reports worsening dyspnea with moderate exertion and dry cough. He is not on any respiratory inhalers. He denies hemoptysis. He denies wheezing, or chest tightness. He reports father, never smoker, with lung cancer. 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 He denies any history of asthma. [facility] Medical History (Updated 10/06/23 @ 21:00 by Tasneem David NP) CAD (coronary artery disease) Diabetes Chronic pain disorder Marijuana use Opioid use disorder Surgical History (Updated 10/03/23 @ 15:57 by Miya Lozada MD) History of cardiac cath History of back surgery Family History Father Cancer Mother No problems noted. Social History (Updated 10/06/23 @ 15:18 by Carol Lance LPN) Patient Tobacco Use Status: Former Tobacco user Quit Date: october 2022 Tobacco use type: Cigarette Cigarette Packs Per Day: 1 Years Smoked: 30 Review of Systems Const Denies excessive sweating, Denies fever(s) and Denies night sweats Eyes Denies dry eyes, Denies irritation and Denies itchy eyes ENT Reports Normal hearing present, Denies nasal congestion, Denies nasal discharge, Denies post nasal drip and Denies sore throat Card Denies chest pain, Denies chest pain at rest, Denies chest pain with activity, Denies claudication, Denies leg edema, Denies orthopnea and Denies paroxysmal nocturnal dyspnea Resp Denies chest congestion, Denies excessive phlegm production, Denies stridor and Denies wheezing Musc Denies myalgias Neuro Reports Normal hearing present Endo Denies excessive sweating Aller/Immun Denies itchy eyes, Denies seasonal rhinorrhea and Denies wheezing Physical Exam Vital Signs: Last Vital Signs Pulse 110 H 10/06/23 15:10 BP 142/80 H 10/06/23 15:10 Pulse Ox 93 10/06/23 15:10 Oxygen Delivery Method Room Air 10/06/23 15:10 BMI result Body Mass Index 22.2 Const General: cooperative, no acute distress and alert Orientation/consciousness: patient oriented x3 Limitations: no limitations HEENT Head: Yes normal to inspection, Yes normocephalic and Yes atraumatic Ears: hearing grossly normal bilaterally and external ears normal Eyes General: appearance normal, both eyes and all related structures Eyelids: Yes eyelids normal Sclerae: sclerae normal EOM: EOMs intact bilaterally Neck Neck: Yes normal visual inspection and Yes no lymphadenopathy Lymphatic: no lymphadenopathy noted Chest Chest palpation & inspection: normal inspection of the chest Resp Effort & Inspection: normal respiratory effort, able to speak in complete sentences, no audible wheezes, no cough, no stridor, not tachypneic, no tripod positioning and no use of accessory muscles Auscultation: diminished lung sounds Cardio Jugular venous distension: no JVD Rate: regular rate Rhythm: regular rhythm Skin Other: warm, dry General skin exam: no rashes or lesions noted Neuro General: patient oriented x3 Cranial nerves: Yes Normal hearing present Cognition (Neuro): normal cognition Gait exam (Neuro): Normal gait present Extrem General: Yes normal to inspection, Yes capillary refill normal, Yes no clubbing, cyanosis or edema and Yes no pedal edema Psych Appearance: grossly normal and well kempt Speech and movement: Normal speech and movement present and Clear speech present Affect: normal affect Attitude: cooperative Thought process: Normal thought process present Thought content: Normal thought content present Insight: Good insight present (Psych) Judgement: Good judgement present (Psych) Results Reviewed Results Reviewed: [place] [address] CT Scan Report Signed Patient: Dagoberto Garcia MR#: [id number] : 1955 Acct:[id number] Age/Sex: 68 / M ADM Date: 09/22/23 Loc: .ED Attending Dr: Ordering Physician: Laura Matute Date of Service: 09/22/23 Procedure(s): CT chest w IV con Accession Number(s): [id number] cc: Thony Wagner MD; Laura Matute~ EXAMINATION: CT CHEST WITH CONTRAST CLINICAL INFORMATION: Chest pain. Shortness of breath. COMPARISON: Chest radiographs 09/20/2023 TECHNIQUE: Multidetector volumetric CT imaging of the chest was obtained after the administration of 65 mL of Omnipaque 350 intravenous contrast without immediate adverse reactions. Axial MIP volume rendering provided. Sagittal and coronal reformatted images were obtained. This CT examination was performed using dose optimization techniques as appropriate, variously including the following: *Automated exposure control *Adjustment of mA and/or kV according to patient size (this includes techniques or standardized protocols for targeted exams where dose is matched to indication/reason for exam; i.e. extremities or head) *Use of iterative reconstruction technique DLP: 242 mGy-cm FINDINGS: LUNGS: Moderate centrilobular emphysema. There is extensive masslike consolidation in the left lower lobe. There is abrupt cut off of the left lower lobe bronchus with likely endobronchial filling defect. There are no air bronchograms as would be expected in the setting of pneumonia. There is heterogeneity of the consolidation with possible underlying necrosis. There is associated volume loss in the left lower lobe with retraction of the major fissure. 7 mm nodule right middle lobe on image 274 series 5. Mild diffuse bronchiectasis. The trachea is patent. MEDIASTINUM: Imaged thyroid gland is normal. No axillary lymphadenopathy. Prominent mediastinal and bilateral hilar lymph nodes. Ascending thoracic aorta measures 4.0 x 4.1 cm in transverse dimension. Heart size is normal. No pericardial effusion. Marked coronary artery calcifications. PLEURA: Trace left pleural effusion. UPPER ABDOMEN: Hepatic steatosis. OSSEOUS STRUCTURES: No destructive bone lesions. CT/CT chest w IV con IMPRESSION: Extensive masslike consolidation in the left lower lobe with abrupt termination of the left lower lobe bronchus with likely endobronchial filling defect. Findings are more concerning for tumor and less likely pneumonia given the lack of air bronchograms. Consultation with pulmonology is advised. PET/CT may be considered. Prominent mediastinal and bilateral hilar lymph nodes. 7 mm right middle lobe nodule. Dictated By: Carmel Azevedo MD Signed By: <Electronically signed by Carmel Azevedo MD in OV> 09/22/23 1333 DD/ 1100 TD/TT: Allergist/Immunologist Physician: Assessment & Plan Assessment & Plan (1) Mass of left lung: Code(s): R91.8 - Other nonspecific abnormal finding of lung field (2) COPD (chronic obstructive pulmonary disease): Code(s): J44.9 - Chronic obstructive pulmonary disease, unspecified (3) Personal history of tobacco use: Code(s): Z87.891 - Personal history of nicotine dependence (4) Obstructive sleep apnea: Code(s): G47.33 - Obstructive sleep apnea (adult) (pediatric) Plan Dagoberto's recent chest CT is consistent with postobstructive pneumonia with an underlying mass of the LLL. Discussed patient at multidisciplinary conference this morning with recommendations to treat with levaquin for optimal response given extensive consolidation and repeat chest CT in 4 weeks to assess for any resolution. Then will discuss bronchoscopy. Patient with newly placed stent and it is recommended patient stay on plavix x 6 months, so will discuss with cardiology regarding holding plavix x 7 days prior to bronchoscopy. Patient also with underlying COPD with dyspnea on moderate exertion as well as dry cough, will empirically trial Breo and send for PFT to assess severity. Patient also noted history of ROBBIE previously on CPAP years ago, not interested in updated sleep study at this time. All questions were answered and patient is in agreement of plan. Will follow up after repeat chest CT or sooner if needed. Orders: Orders CT chest wo IV con 4 Weeks R91.8 - Other nonspecific abnormal finding of lung field PFT pulmonary function test Today J44.9 - Chronic obstructive pulmonary disease, unspecified Medications: New fluticasone furoate-vilanterol 100-25 mcg/dose (Breo Ellipta) 1 inh inhalation DAILY 60 ea 3RF levofloxacin 750 mg PO DAILY 10 tabs 0RF Coding Level of Care Code New Pt Level 4 (03170) Diagnoses Mass of left lung R91.8 COPD (chronic obstructive pulmonary disease) J44.9 Personal history of tobacco use Z87.891 Obstructive sleep apnea G47.33
== END 2023-10-06 16:05 | disposition home or self-care (01) ==
PROVIDERS: PCP Internal Medicine; Visit Provider Nurse Practitioner Family
DX: R91.8 Other nonspecific abnormal finding of lung field (principal); J44.9 Chronic obstructive pulmonary disease, unspecified; Z87.891 Personal history of nicotine dependence; G47.33 Obstructive sleep apnea (adult) (pediatric)
CPT/HCPCS: 99204

== ENCOUNTER → 2023-10-06 15:00 | Outpatient (BNVA) | payer BC, SELFPAY | PROVIDERS: PCP Internal Medicine; Visit Provider Nurse Practitioner Family ==

== ENCOUNTER 2023-10-09 10:46 | Outpatient (REF) | payer BC, SELFPAY ==
--- NOTE | ~2023-10-09 | MR_ITS ---
EXAMINATION: MR BRAIN WITHOUT CONTRAST CLINICAL INFORMATION: Headache. Lung mass. COMPARISON: CT head from 08/11/2011. TECHNIQUE: MRI of the brain was obtained using routine sequences without contrast. Patient was unable to continue with the remainder of the exam secondary to claustrophobia. No postcontrast imaging was obtained. FINDINGS: Susceptibility artifact associated with a heterogeneous 1.9 cm lesion in the left cerebellar hemisphere. There also appears to be susceptibility artifact associated with a 0.6 cm lesion in the left parietal lobe. Moderate perilesional edema associated with these lesions. No focal restricted diffusion is demonstrated to suggest acute or subacute cerebral ischemia. No evidence of acute hemorrhagic products on heme-sensitive imaging. Scattered and partially confluent periventricular, deep white matter, and brainstem T2 FLAIR hyperintensities consistent with moderate underlying microangiopathy. Proportional prominence of the ventricles and sulcal spaces without evidence of obstructive hydrocephalus. No midline shift. Normal appearance of the pituitary gland. Normal positioning of the cerebellar tonsils. Normal arterial and venous vascular flow voids are present. Normal, homogeneous marrow signal. Mild mucosal thickening of the paranasal sinuses. No signal abnormalities within the mastoids. MR/MR head/brain wo con IMPRESSION: Limited noncontrast evaluation. The patient was unable to complete the entirety of the exam secondary to claustrophobia. Within this limitation, there appears to be a 1.9 cm lesion in the left cerebellar hemisphere and a 0.6 cm lesion in the left parietal lobe suspicious for metastatic disease with intralesional blood products given the patient's history. Moderate underlying microangiopathy and generalized cerebral volume loss.
== END 2023-10-09 10:47 | disposition home or self-care (01) ==
LOC: HO.MRI 10:46
PROVIDERS: PCP Internal Medicine; Visit Provider Internal Medicine
DX: R51.9 Headache, unspecified (principal)
CPT/HCPCS: 70551

== ENCOUNTER 2023-10-26 08:11 | Day surgery (SDC) | payer BC, SELFPAY ==
[2023-10-24 16:16] VITALS: BMI 23.0
--- NOTE | 2023-10-25 08:57 | P.CONAN_ITS ---
Documented by User: Denies Welch NP 10/25/23 09:10 HPI - Anesthesia Eval Consult details Narrative: 68yo M for Bronchoscopy Fiberoptic CAD s/p LYDIA 07/2023. ASA and plavix. (Pt and providers aware of increased risk with holding DAPT <6 months from stent) Suboxone daily PMFSH Active Problems Active Problems: All Active Problems (Updated 10/24/23 @ 16:28 by Rosalba Gomez RN) Obstructive sleep apnea (Acute) Personal history of tobacco use (Acute) COPD (chronic obstructive pulmonary disease) (Acute) Mass of left lung (Acute) S/P cardiac cath (Acute) Crescendo angina (Acute) Stable angina (Acute) Hyperlipidemia (Acute) Coronary atherosclerosis (Acute) S/P cardiac cath (Acute) Exertional chest pain (Acute) Opioid use disorder, moderate, in sustained remission (Acute) Opioid use disorder (Acute) Marijuana use (Acute) Chronic pain disorder (Acute) Past Medical History Medical History COPD (chronic obstructive pulmonary disease) Unintentional weight loss CAD (coronary artery disease) Diabetes Chronic pain disorder Marijuana use Opioid use disorder Family History Family History Father Cancer Mother No problems noted. Surgical History Surgical History Stented coronary artery Hx of colonoscopy History of cardiac cath History of back surgery Social History Social History Household Members: Spouse Housing: House Are you a primary clinical care leader to a significant other at home: No Do you presently have visiting nurse or other home services: No Patient Tobacco Use Status: Former Tobacco user Quit Date: 04/2023 Tobacco use type: Cigarette Cigarette Packs Per Day: 1 Years Smoked: 20 Use of substances other than those prescribed or required for medical reasons: No Have you been hit, kicked, punched, or otherwise hurt by someone within the past year? If so, by whom?: No Are you DNR?: No Advance Directives: No Advance Directives Information Provided: Yes Advance Directives on File: No Recently lost weight without trying: Yes How much weight loss: 24-33 pounds Eating poorly because of decreased appetite: Yes Nutrition screen score: 6 Nutrition Risks: Dental problems Meds Allergies Allergy/AdvReac Type Severity Reaction Status Date / Time acetaminophen [Tylenol] Allergy Intermediate restless Verified 10/24/23 16:22 legs Antihistamines - Alkylamine Allergy Intermediate Agitated Verified 10/24/23 16:22 [ANTIHISTAMINES - ALKYLAMINE] Antihistamine Allergy Intermediate Agitated Uncoded 10/24/23 16:22 Home Medications ?Medication ?Instructions ?Recorded ?Confirmed ?Last Taken ?Type cyclobenzaprine 10 mg tablet 10 mg PO BEDTIME PRN Muscle Spasm 02/14/23 10/24/23 Unknown History metformin 500 mg tablet 500 mg PO .DAILY@NOON 02/14/23 10/24/23 10/26/23 History aspirin 81 mg tablet,delayed 81 mg PO DAILY 03/16/23 10/24/23 10/25/23 History release nitroglycerin 0.4 mg sublingual 0.4 mg sublingual PRN Chest Pain 10/24/23 Unknown History tablet Exam Height,Weight and Vital Signs: Height 5 ft 10 in Weight 72.575 kg Pertinent Lab Results Pertinent Lab Results: Laboratory Tests 09/22/23 09:40 WBC 13.6 H Hgb 14.2 Hct 42.7 Plt Count 496 H Sodium 139 Potassium 4.2 Chloride 96 Carbon Dioxide 31 H BUN 17 H Creatinine 0.81 Narrative Narrative: EKG 07/2023 normal sinus rhythm with normal EKG Assessment and Plan Assessment Anesthesia Assessment: Chart Reviewed Documented by User: Patricia Kapadia MD 10/26/23 10:04 [facility] Past Medical History Medical History COPD (chronic obstructive pulmonary disease) Unintentional weight loss CAD (coronary artery disease) Diabetes Chronic pain disorder Marijuana use Opioid use disorder Family History Family History Father Cancer Mother No problems noted. Surgical History Surgical History Stented coronary artery Hx of colonoscopy History of cardiac cath History of back surgery History of Problems with Anesthesia: No Social History Social History Household Members: Spouse Housing: House Are you a primary clinical care leader to a significant other at home: No Do you presently have visiting nurse or other home services: No Patient Tobacco Use Status: Former Tobacco user Quit Date: 04/2023 Tobacco use type: Cigarette Cigarette Packs Per Day: 1 Years Smoked: 20 Use of substances other than those prescribed or required for medical reasons: No Have you been hit, kicked, punched, or otherwise hurt by someone within the past year? If so, by whom?: No Are you DNR?: No Advance Directives: No Advance Directives Information Provided: Yes Advance Directives on File: No Recently lost weight without trying: Yes How much weight loss: 24-33 pounds Eating poorly because of decreased appetite: Yes Nutrition screen score: 6 Nutrition Risks: Dental problems Meds Allergies Allergy/AdvReac Type Severity Reaction Status Date / Time acetaminophen [Tylenol] Allergy Intermediate restless Verified 10/24/23 16:22 legs Antihistamines - Alkylamine Allergy Intermediate Agitated Verified 10/24/23 16:22 [ANTIHISTAMINES - ALKYLAMINE] Antihistamine Allergy Intermediate Agitated Uncoded 10/24/23 16:22 Home Medications ?Medication ?Instructions ?Recorded ?Confirmed ?Last Taken ?Type cyclobenzaprine 10 mg tablet 10 mg PO BEDTIME PRN Muscle Spasm 02/14/23 10/24/23 Unknown History metformin 500 mg tablet 500 mg PO .DAILY@NOON 02/14/23 10/24/23 10/26/23 History aspirin 81 mg tablet,delayed 81 mg PO DAILY 03/16/23 10/24/23 10/25/23 History release nitroglycerin 0.4 mg sublingual 0.4 mg sublingual PRN Chest Pain 10/24/23 Unknown History tablet Exam Airway Mallampati Class: II (edentulpus except for 2 lower teeth) TM Dist: >3cm Neck ROM: Full Loose/Missing/Broken Teeth: Yes, Upper and Lower Heart: RRR Lungs: scattered mild rhonchi, distant BS Assessment and Plan Assessment Anesthesia Assessment: Anesthesia Plan Discussed Final Anesthetic Review History of Problems with Anesthesia: No NPO: Yes ASA Class: IV Final Preanesthetic Review: Meds/Allgs Chart Reviewed, Consent Obtained/Reviewed and Anes Risks/Benef Reviewed Patient Risk: High Procedure Risk: Intermediate Anesthetic Plan Anesthetic Plan: GA Disposition: Standard PACU
[2023-10-26] VITALS (9 sets, daily range): BP systolic 91–134; BP diastolic 60–78; PULSE 77–102; RESP 16–20; TEMP 36.3–36.8; O2SAT 92–96
[2023-10-26 09:14] LABS: Glucose, Whole Blood 170 mg/dL (60-115)
[2023-10-26] MEDS: Lactated Ringers 1,000 ML 100 ML IVCONT (09:18)
--- NOTE | 2023-10-26 09:28 | MHC.SHP ---
Pre-Procedural Eval Section A - 24 Hr Update-Section A only Date of Service: 10/26/23 Changes since office visit: No Cold of Flu in the past 2 weeks, No New Medical Problems and No Changes in Medication The patient has been examined within 24 hours of the surgical procedure. The History & Physical has been completed within 30 days and I have reviewed it.: No Section B - Complete if H&P > 30 days Chief Complaint: Other nonspecific abnormal finding of lung field Relevant Family History (Specify if Yes): No Relevant Social History: Tobacco Use Present Medications: see Short Stay Collaborative assessment Medical History: Significant History (Metastatic lung cancer) History of Previous Operations: No relevant previous surgery Allergies: Allergies Allergy/AdvReac Type Severity Reaction Status Date / Time acetaminophen [Tylenol] Allergy Intermediate restless Verified 10/24/23 16:22 legs Antihistamines - Alkylamine Allergy Intermediate Agitated Verified 10/24/23 16:22 [ANTIHISTAMINES - ALKYLAMINE] Antihistamine Allergy Intermediate Agitated Uncoded 10/24/23 16:22 Review of Systems Sugical H&P ROS: Negative: Constitution, Cardiovascular, Respiratory, Neurological, Psychiatric, Hem-Onc, Allergic/Immunologic, Gastrointestinal, Genitourinary, Musculoskeletal, Integumentary, Endocrine and Eyes/Ears/Nose/Throat Exam Surgical H&P Exam: Normal: HEENT, Normal: Heart, Normal: Lungs, Normal: Extremities, Normal: Abdomen, Normal: Skin and Normal: Neurological Plan Diagnosis/Plan: Unchanged I have reviewed the history and physical and performed a pertinent physical examination on my patient. No changes have occurred unless specified. Will proceed with flexible bronchoscopy with biopsies. Time Spent With Patient Time: Total time managing care of this patient today ____ minutes.
--- NOTE | 2023-10-26 11:07 | PM.OP ---
Brief Operative Note Date of Service: 10/26/23 Pre-op diagnosis: Lung cancer Post-op diagnosis: same Procedure: Fibrotic bronchoscope advanced through the ET tube with patient intubated for the procedure through the tracheobronchial tree with visualization of left lower lobe endobronchial lesion, essentially occluding left lower lobe. Five endobronchial forceps biopsies obtained and sent for further pathologic testing. Biopsy site irrigated with lidocaine 1% with epinephrine and observed with visualization of hemostasis. Patient tolerated procedure well and was returned to PACU in stable condition. Surgeon: Renny Brambila MD Anesthesia: GETA Was an Route Sales Delivery Drivers Supervisor used for this Procedure?: No Estimated blood loss (mL): 0 Condition: stable Disposition: PACU
[2023-10-26] MEDS: fentaNYL citrate/PF 100 MCG/2 ML VIAL 50 MCG IVPUSH ×3 (11:20→11:52)
== END 2023-10-26 14:14 | disposition home or self-care (01) ==
PROVIDERS: PCP Internal Medicine; Visit Provider Internal Medicine Pulmonary Disease
PROC: 0BJ08ZZ Inspection of Tracheobronchial Tree, Via Natural or Artificial Opening Endoscopic (ICD-10-PCS; CPT 31622; principal; 2023-10-26 10:10)
DX: C34.32 Malignant neoplasm of lower lobe, left bronchus or lung (principal); J44.9 Chronic obstructive pulmonary disease, unspecified; I25.10 Atherosclerotic heart disease of native coronary artery without angina pectoris; Z95.5 Presence of coronary angioplasty implant and graft; G47.33 Obstructive sleep apnea (adult) (pediatric); E11.9 Type 2 diabetes mellitus without complications; G89.29 Other chronic pain; Z79.51 Long term (current) use of inhaled steroids; Z79.02 Long term (current) use of antithrombotics/antiplatelets; Z79.899 Other long term (current) drug therapy; Z79.82 Long term (current) use of aspirin; Z79.84 Long term (current) use of oral hypoglycemic drugs; F11.20 Opioid dependence, uncomplicated; Z88.8 Allergy status to other drugs, medicaments and biological substances; Z87.891 Personal history of nicotine dependence; Z98.890 Other specified postprocedural states
CPT/HCPCS: 31625; 82947; 88305; 88341; 88342; J2305; J2371; J2704; J3010

== ENCOUNTER → 2023-10-26 08:11 | Outpatient (BNV) | payer BC, SELFPAY | PROVIDERS: PCP Internal Medicine; Visit Provider Internal Medicine Pulmonary Disease | DX: C34.32 Malignant neoplasm of lower lobe, left bronchus or lung (principal) | CPT/HCPCS: 31625 ==

== ENCOUNTER 2023-10-31 10:55 | Outpatient (AMB) | payer BC, MEDICARE, SELFPAY ==
--- NOTE | 2023-10-31 10:59 | MHC.AM.SUB ---
Intake Intake Visit Reasons: MAT Allergies acetaminophen [Tylenol] Allergy (Intermediate, Verified 10/31/23 09:58) restless legs Antihistamines - Alkylamine [ANTIHISTAMINES - ALKYLAMINE] Allergy (Intermediate, Verified 10/31/23 09:58) Agitated Antihistamine Allergy (Intermediate, Uncoded 10/31/23 09:58) Agitated HPI MAT HPI Details Patient presents as walk-in Reports recent diagnosis of lung cancer Expressing significant pain to left lower lung field on inspiration and at rest that is poorly controlled at this time Expressing distress over this, saying everything is just hitting him now , tearful STates he does not want to stop his suboxone, but is feeling it is not adequate for pain relief Being followed by Dr. Lozada-oncology [facility] Medical History COPD (chronic obstructive pulmonary disease) Unintentional weight loss CAD (coronary artery disease) Diabetes Chronic pain disorder Marijuana use Opioid use disorder Surgical History Stented coronary artery Hx of colonoscopy History of cardiac cath History of back surgery Family History Father Cancer Mother No problems noted. Social History Household Members: Spouse Housing: House Are you a primary critical care rn to a significant other at home: No Do you presently have visiting nurse or other home services: No Patient Tobacco Use Status: Former Tobacco user Quit Date: 04/2023 Tobacco use type: Cigarette Cigarette Packs Per Day: 1 Years Smoked: 20 Review of Systems Const Reports as per HPI Resp Reports pain on inspiration Physical Exam Const General: cooperative Psych Appearance: grossly normal Mental Status: mental status grossly normal Speech and movement: Normal speech and movement present Affect: Sad affect present Attitude: cooperative Thought process: Normal thought process present Assessment & Plan Assessment & Plan (1) Opioid use disorder, moderate, in sustained remission: Code(s): F11.21 - Opioid dependence, in remission Plan: -No refill needed at this time -Processed with patient his new diagnosis -Reviewed with him to call or present as walk-in if he needs to be seen earlier than next appt (2) Mass of left lung: Code(s): R91.8 - Other nonspecific abnormal finding of lung field Plan: -Discussed with Dr. Lozada pt need for appropriate pain medicatoin regimen, discussed with her pt will have higher tolerance due to suboxone therapy and will need to be dosed accordingly Coding Level of Care Code Est Pt Level 3 (53410) Diagnoses Opioid use disorder, moderate, in sustained remission F11.21 Mass of left lung R91.8
== END 2023-10-31 11:03 | disposition home or self-care (01) ==
PROVIDERS: PCP Internal Medicine; Visit Provider Nurse Practitioner Family
DX: F11.21 Opioid dependence, in remission (principal); R91.8 Other nonspecific abnormal finding of lung field
CPT/HCPCS: 99213

== ENCOUNTER → 2023-10-31 10:55 | Outpatient (BNVA) | payer BC, SELFPAY | PROVIDERS: PCP Internal Medicine; Visit Provider Nurse Practitioner Family ==

== ENCOUNTER 2023-11-07 13:04 | Outpatient (REF) | payer BC, MEDICARE, SELFPAY ==
--- NOTE | ~2023-11-07 | PE_ITS ---
EXAMINATION: Fluorine-18 FDG PET/CT Scan CLINICAL INDICATION: Initial treatment management. Malignant neoplasm left lung, staging. PROCEDURE: 55 minutes following the intravenous administration of 16.2 mCi of fluorine 18 FDG, images from the base of the skull to the mid thighs were obtained using a combined PET/CT scanner with CT scan based attenuation correction. No oral contrast was administered. No intravenous contrast was administered. Transverse, coronal, sagittal, and volume reconstruction projections were obtained. The patient's blood glucose as determined by a finger stick, was 105 mg/dl immediately prior to injection. Total CT exam dose-length product 529.07 mGy-cm * These CT images were obtained using dose optimization techniques as appropriate, variously including the following: Automated exposure control * Adjustment of mA and/or kV according to patient size (this includes techniques or standardized protocols for targeted exams where dose is matched to indication/reason for exam; i.e. extremities or head) * Use of iterative reconstruction technique COMPARISON: No previous PET/CT scan is available for comparison. CT scan of the chest dated 09/22/2023 and MRI of the head dated 10/09/2023 are available for comparison. FINDINGS: (Slice numbers described in this report are numbered superiorly to inferiorly with slice #1 in the head) NECK AND VISUALIZED HEAD: There is a focus of abnormal FDG activity present in the left cerebellar hemisphere which is more intense than any other focus in the brain, showing SUVmax 7.4, slice 10/267. This is not well delineated on the CT images, but on the FDG PET images this measures 2.6 x 2.0 cm in largest transverse dimensions, and approximately 2.0 cm cephalocaudad. This corresponds very well to the lesion at this site on the 10/09/2023 MRI of the head. An additional left parietal lesion subcentimeter in size visualized on that MRI is probably outside the [id number] of this study and cannot be compared. There are no other foci of abnormal FDG activity in the neck or visualized head. All the other activity appears physiological. There is no cervical lymphadenopathy. THORAX: There is masslike consolidation medially and posteriorly in the left lower lobe, showing SUVmax on the CT images the mass measures 7.6 x 6.4 cm in largest transverse dimensions and approximately 9 cm cephalocaudad. It abuts the medial and posterior pleura and extends inferiorly to the diaphragmatic pleura. The bronchus to the left lower lobe appears completely compressed but some aerated lung is present posterolaterally in the left lower lobe. Posteromedially there is consolidation that appears distal to the mass and likely is due to atelectasis. The CT appearance does not appear significantly changed from the 09/22/[address] scan. A 0.7 cm right middle lobe nodule visualized on that study appear similar on the current study, slice 141/349, and is too small to be characterized on the FDG PET images. There are no additional suspicious pulmonary nodules visualized are additional foci of abnormal FDG activity. Several subcentimeter mediastinal lymph nodes are present in the lower pretracheal and AP window regions. These are too small to be characterized on the FDG PET images. No enlarged mediastinal lymph nodes are present. There is no supraclavicular or axillary lymphadenopathy. Trace pleural fluid is present on the left in this is weakly FDG avid, SUVmax 2.0, slice 135/267. There is no pericardial fluid or pneumothorax. ABDOMEN AND PELVIS: There is an FDG avid right adrenal mass, SUVmax 8.2, slice 143/267. This measures 3.5 x 2.3 cm in largest transverse dimensions an approximately 2.9 cm cephalocaudad. This is much larger on the CT images than minimal thickening that was probably present on the 09/22/[address] scan of the chest. There is an FDG avid left-sided retroperitoneal node showing SUVmax 5.1, slice 156/267. This measures 1.1 x 0.9 cm in largest transverse dimensions on the CT images and is at the level of no additional foci of abnormal FDG activity are present and lies just anterior to the left renal vein. There is no additional retroperitoneal, mesenteric, pelvic or inguinal lymphadenopathy. There is a region of mildly increased FDG activity in liver Couinaud segment IVb showing SUVmax 3.8, slice 152/267. A subtle hypodensity at this site is suggested on the CT images, but is not well delineated. This is also suggested as a mass on the 09/22/2023 CT scan measuring 3.3 x 3.1 cm in largest transverse dimensions, but it is not well delineated on that study either. The liver is otherwise unremarkable. The gallbladder and spleen are unremarkable. The kidneys and left adrenal gland are unremarkable. The pancreas is atrophic but otherwise unremarkable. The prostate gland is enlarged measuring 5.1 cm in largest transverse dimension. The pelvic organs are otherwise unremarkable. MUSCULOSKELETAL: There are no foci of abnormal FDG activity in the osseous structures. There are degenerative changes in the spine, most severely in the lumbar spine. There is a mild thoracolumbar scoliosis with lumbar convexity to the left. There is some sclerosis and deformity present in the mid left iliac bone suggesting changes from a prior fracture. There is no associated abnormal FDG activity. This is visualized centered on slice 252/349. There are no suspicious sclerotic or lytic lesions visualized. VASCULAR: Diffuse vascular calcifications including coronary are noted. There is ectasia of the infrarenal abdominal aorta measuring 2.8 cm in largest AP diameter. Reference SUVmax Levels: Mediastinal Blood Pool: 1.9, Slice 99/267 Liver: 2.7, Slice 146/267 PET/PET CT fusion skull to thigh IMPRESSION: 1. A large FDG avid pulmonary mass is present in the left lower lobe as described above. This is most consistent with a primary pulmonary malignancy. Distal to the mass there is some consolidation and atelectasis, as described above. 2. An FDG avid lesion in the left cerebellar hemisphere corresponds well to the lesion at this site on the 10/09/2023 MRI of the head and is likely a metastasis. An additional suspicious focus in the left parietal cerebral cortex visualized on the MRI study is outside the axial [id number] of these images and cannot be evaluated. 3. 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 This has shown significant enlargement since the recent 09/22/[address] scan. 4. A left-sided retroperitoneal FDG avid lymph node is likely an additional metastasis. 5. An FDG avid focus of mild intensity is present in the liver as described above. This is not well delineated on the CT images but is suspected to represent an additional metastasis. This could be further characterized with MRI of the liver, performed without and with intravenous contrast. 6. No additional abnormalities suspicious for other metastatic or malignant lesions are noted. 7. Prostatomegaly. 8. Vascular calcifications including coronary.
== END 2023-11-07 13:05 | disposition home or self-care (01) ==
LOC: HO.PET 13:04
PROVIDERS: PCP Internal Medicine; Visit Provider Internal Medicine
DX: Z13.89 Encounter for screening for other disorder (principal)

== ENCOUNTER 2023-11-12 08:58 | Emergency (ER) | payer BC, MEDICARE, SELFPAY ==
--- NOTE | ~2023-11-12 | XR_ITS ---
EXAMINATION: XR chest 1V CLINICAL INFORMATION: Reason for Exam ams COMPARISON: Prior chest x-ray August 2023 TECHNIQUE: Single portable frontal view. Tubes and lines: None Lungs and pleura: Opacification at lung bases bilaterally especially left lung base suggesting infiltrate/atelectasis. Was also seen on prior exam, This might be chronic or recurrent. Blunting of left costophrenic angle suggesting small subpulmonic pleural effusion. Heart and mediastinum: Prominent left hilum left parahilar mass correlate with patient's known neoplasm.. Bones/soft tissue: Skeletal structures included are normal for patient's age. XR/XR chest 1V IMPRESSION: 1. Opacification at lung bases bilaterally especially left lung base suggesting infiltrate/atelectasis. Was also seen on prior exam, this might be chronic or recurrent. 2. Prominent left hilum left parahilar mass correlate with patient's known neoplasm, not significantly changed..
--- NOTE | ~2023-11-12 | CT_ITS ---
CT head/brain wo IV con CLINICAL INFORMATION: Reason for Exam AMS, h/o malignancy COMPARISON: PET/CT from 11/07/2023/MRI from September 2023. TECHNIQUE: Department standard protocol. This CT examination was performed using dose optimization techniques as appropriate, variously including the following: *Automated exposure control *Adjustment of mA and/or kV according to patient size (this includes techniques or standardized protocols for targeted exams where dose is matched to indication/reason for exam; i.e. 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 There is surrounding vasogenic edema and mass effect. This is newly found on today's exam. SUBDURAL SPACE: No bleed. BASAL GANGLIA AND PINEAL GLAND: Lacunar infarct in the right caudate lobe indeterminant age. VENTRICLES: Symmetric and normal in size. CEREBELLUM AND BRAINSTEM: Redemonstration of heterogeneous irregular mass in the left cerebellum measures 3.5 x 3.9 cm containing hyperdense material could be petechial hemorrhage, surrounding hypodensity likely brain edema and mass effect. This was previously identified on a prior PET/CT and highly suspicious for neoplastic activity probably metastasis. CEREBELLOPONTINE ANGLES: No lesion found. ORBITS: No intraorbital mass. VESSELS: Unremarkable SKULL BASE: Unremarkable INCLUDED SINUSES AT SKULL BASE: Clear SKULL AND SKIN: No fracture or bone lesion found. CT/CT head/brain wo IV con IMPRESSION: 1. Redemonstration of heterogeneous irregular mass in the left cerebellum 3.5 x 3.9 cm containing hyperdense material could be petechial hemorrhage, surrounding hypodensity likely brain edema and mass effect, there is no midline shift. This was previously identified on a prior PET/CT and suspicious for neoplastic activity probably metastasis. 2. 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 There is surrounding vasogenic edema / mass effect. 3. Lacunar infarct in the right caudate lobe indeterminant age. 4. Exam is limited due to lack of contrast.
[2023-11-12 09:03] VITALS: BP 154/92; PULSE 82; O2SAT 98
[2023-11-12 09:13] VITALS: BP 152/90; PULSE 76; RESP 14; TEMP 36.8; O2SAT 96; BMI 21.3
--- NOTE | 2023-11-12 09:25 | ECG_ITS ---
Test Reason : AMS Blood Pressure : / mmHG Vent. Rate : 073 BPM Atrial Rate : 073 BPM P-R Int : 178 ms QRS Dur : 094 ms QT Int : 392 ms P-R-T Axes : 050 044 023 degrees QTc Int : 431 ms Normal sinus rhythm Nonspecific ST abnormality Abnormal ECG When compared with ECG of 11-AUG-2011 20:13, No significant change was found Referred By: Mita Bonilla Electronically Signed By:JOSE ANTONIO CANTU MD
--- NOTE | 2023-11-12 09:31 | ED_ITS ---
HPI - Altered Mental Status General Chief Complaint: Altered Mental Status Stated Complaint: DIZZY,AMS X1 D,FAM STS MISUSE OF PAIN MED PER EMS Time Seen by Provider: 11/12/23 09:04 Source: patient and EMS Mode of arrival: EMS Limitations: no limitations History of Present Illness HPI narrative: This is a 68-year-old male who was recently diagnosed with lung cancer and is currently of the staging process well by Dr. Lozada who presents to the ER with concern for confusion from family. Per report from EMS patient seemed confused which is not his baseline prompting them to call 911. There is no reports of injury or trauma. Patient is taking Plavix and aspirin after recent stent placement. He also has an underlying history of hyperlipidemia, COPD, opiate use disorder. He had been on Suboxone for 2 weeks ago after his cancer diagnosis he was switched to oxycodone 5 mg Q 8 hours which he tells me he has been taking as prescribed and has not taken any additional doses of oxycodone in the last 24 hours. He denies any headache, dizziness, vision changes, vomiting. He does have chronic chest wall pain with coughing but denies any other new or concerning symptoms. Related Data Home Medications ?Medication ?Instructions ?Recorded ?Confirmed cyclobenzaprine 10 mg tablet 10 mg PO BEDTIME PRN Muscle Spasm 02/14/23 10/24/23 metformin 500 mg tablet 500 mg PO .DAILY@NOON 02/14/23 10/24/23 aspirin 81 mg tablet,delayed 81 mg PO DAILY 03/16/23 10/24/23 release nitroglycerin 0.4 mg sublingual 0.4 mg sublingual PRN Chest Pain 10/24/23 tablet Previous Rx's ?Medication ?Instructions ?Recorded metoprolol succinate 50 mg 100 mg (2 x 50 mg) PO DAILY 90 08/15/23 tablet,extended release 24 hr days #180 tabs ezetimibe 10 mg tablet (Zetia) 10 mg PO DAILY #30 tabs 08/16/23 atorvastatin 80 mg tablet 80 mg PO BEDTIME 90 days #90 tabs 09/01/23 buprenorphine 8 mg-naloxone 2 mg 1 film sublingual TID #90 ea 09/12/23 sublingual film (Suboxone) fluticasone furoate 100 1 inh inhalation DAILY #60 ea 10/06/23 mcg-vilanterol 25 mcg/dose inhalation powder (Breo Ellipta) clopidogrel 75 mg tablet 75 mg PO DAILY #90 tabs 11/08/23 oxycodone 10 mg tablet 10 mg PO Q6H PRN Pain (Scale Score 11/08/23 7-10) #30 tabs isosorbide mononitrate 60 mg 120 mg (2 x 60 mg) PO DAILY 30 11/09/23 tablet,extended release 24 hr days #60 tabs Allergies Allergy/AdvReac Type Severity Reaction Status Date / Time acetaminophen [Tylenol] Allergy Intermediate restless Verified 11/12/23 09:24 legs Antihistamines - Alkylamine Allergy Intermediate Agitated Verified 11/12/23 09:24 [ANTIHISTAMINES - ALKYLAMINE] Antihistamine Allergy Intermediate Agitated Uncoded 10/31/23 09:58 Review of Systems 2 Review of Systems: Yes all other systems are reviewed and are negative Constitutional: Constitutional: Reports no additional constitutional complaints, Denies body ache(s), Denies chills, Denies fever(s), Denies headache(s) and Denies weakness Eyes: Eyes: Reports no additional eye complaints and Denies change in vision ENT: Reports system reviewed and no additional complaints, except as documented, Denies dizziness, Denies headache(s), Denies nasal congestion, Denies nasal discharge and Denies neck pain Cardiovascular: Cardiovascular: Reports no additional cardiovascular complaints, Denies chest pain, Denies leg edema and Denies dyspnea Respiratory: Respiratory: Reports no additional respiratory complaints, Denies cough and Denies dyspnea Gastrointestinal: Gastrointestinal: Reports no additional gastrointestinal complaints, Denies abdominal pain, Denies diarrhea, Denies nausea and Denies vomiting Genitourinary: Genitourinary: Denies urinary incontinence Musculoskeletal: Musculoskeletal: Reports no additional musculoskeletal complaints, Denies back pain, Denies arthralgias, Denies joint swelling, Denies neck pain, Denies numbness and Denies tingling Integumentary/Breasts: Skin/Breast: Reports system reviewed and no additional complaints, except as docu and Denies rash Neurologic: Reports system reviewed and no additional complaints, except as documented, Denies Abnormal speech present, Denies dizziness, Denies headache(s), Denies numbness, Denies tingling and Denies weakness [facility] Past Medical History Attestation statement: The following information was validated with the patient. Source: old records reviewed and nursing notes reviewed Medical History Personal history of tobacco use CAD (coronary artery disease) Stented coronary artery COPD (chronic obstructive pulmonary disease) Diabetes Chronic pain disorder Marijuana use Opioid use disorder, moderate, in sustained remission Unintentional weight loss Surgical History History of bronchoscopy History of heart artery stent History of cardiac cath History of back surgery History of right knee surgery History of colonoscopy Family History Family History Father Cancer Mother No problems noted. Social History Social History Household Members: Spouse Housing: House Are you a primary pediatric care coordinator to a significant other at home: No Do you presently have visiting nurse or other home services: No Patient Tobacco Use Status: Former Tobacco user Quit Date: 04/2023 Tobacco use type: Cigarette Cigarette Packs Per Day: 1 Years Smoked: 20 Smoked in Last 30 Days: No Use of substances other than those prescribed or required for medical reasons: No Advance Directives: No Advance Directives Information Provided: No Physical Exam ED Vital Signs: Vital Signs - 24 hr 11/12/23 09:13 11/12/23 12:00 11/12/23 15:06 Temperature 98.2 F 97.2 F Pulse Rate 76 83 80 Respiratory Rate 14 10 L 16 Blood Pressure 152/90 H 158/82 H 132/76 Pulse Oximetry 96 97 98 Oxygen Delivery Method Room Air Room Air Room Air BMI result Body Mass Index 21.3 Const General: cooperative, healthy appearing, comfortable and no acute distress Orientation/consciousness: patient oriented x3 Limitations: no limitations HENMT Head: Yes normal to inspection, No Vance's sign and No raccoon eyes Ears: hearing grossly normal bilaterally and TM's normal bilaterally General nose exam: Normal external nose present Face and sinus: Yes normal facial exam Mouth: Normal oral and palatal mucosa present Throat: Yes posterior oropharynx normal, Yes tonsils normal and Yes uvula midline Eyes General: appearance normal, both eyes and all related structures Pupils: Equal, round and reactive pupils present Neck Neck: Yes normal visual inspection, Yes full ROM, Yes no lymphadenopathy and Yes no meningeal signs Chest Chest palpation & inspection: normal inspection of the chest Resp Effort & Inspection: normal respiratory effort Auscultation: clear to auscultation bilaterally Cardio Rate: regular rate Rhythm: regular rhythm Peripheral pulses: Peripheral pulses 2+ throughout GI Inspection: Yes normal to inspection Palpation (GI): Soft to palpation and nontender Auscultation: normal bowel sounds Back/Spine/Pelvis Thoracic/Lumbar Spine: thoracic and lumbar spine normal to inspection Skin General skin exam: no rashes or lesions noted Neuro General: patient oriented x3, moves all extremities, no meningeal signs, no focal motor deficits and normal sensation to monofilament Cranial nerves: Yes CN's II-XII intact bilaterally, Yes Equal, round and reactive pupils present, Yes Bilaterally intact EOM present, Yes Nystagmus not present, Yes Normal facial strength present and Yes Midline tongue present Cognition (Neuro): normal cognition Speech: No Abnormal speech present Gait exam (Neuro): Normal gait present Motor exam (neuro): 5/5 motor strength present throughout Sensory Exam: Normal double simultaneous stimulation for sensation Extrem General: Yes normal to inspection NIH Stroke Scale Internal: Initial- Upon Arrival Level of Consciousness: Alert Level of Consciousness Questions: Answers both questions correctly Level of Consciousness Commands: Performs one task correctly Best Gaze: Normal Visual: No visual loss Facial Palsy: Normal Motor Arm (Right): No drift Motor Arm (Left): No drift Motor Leg (Right): No drift Motor Leg (Left): No drift Limb Ataxia: Absent Sensory: Normal Best Language: No aphasia Dysarthia: Normal Extinction and Inattention: No abnormality Score: 1 Course Course Course Narrative: 0945-Family unaware of PET scan result as well as patient. They have appointment tomorrow with Dr Lozada to discuss the results. I did share with them the results at the bedside Reevaluation(s) Reevaluation #1: 1230 IMPRESSION: 1. Redemonstration of heterogeneous irregular mass in the left cerebellum 3.5 x 3.9 cm containing hyperdense material could be petechial hemorrhage, surrounding hypodensity likely brain edema and mass effect, there is no midline shift. This was previously identified on a prior PET/CT and suspicious for neoplastic activity probably metastasis. 2. 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 There is surrounding vasogenic edema / mass effect. 3. Lacunar infarct in the right caudate lobe indeterminant age. 4. Exam is limited due to lack of contrast. Repeat neuro unchanged. Due to CT findings I did feel the patient may need observation at a tertiary care center and or neurosurgery consultation therefore I will reach out to [facility] to discuss this. Decadron 10 mg IV ordered Reevaluation #2: 1245-call back from neurosurgery PA at [facility] Fara Denise. She will review the images and call me back Reevaluation #3: 1430-I did speak to the neurosurgery PA who accepted the patient but the patient will need to be admitted to the medicine service. Waiting for call back Additional Reevaluation(s): 1443-I spoke to the medicine team who accepted the patient with the accepting physician Dr. DENNIS. They will call us back with bed placement as patient will be a direct admit. Family was updated 1530-I met with the patient's family including his healthcare proxy as I am unsure that he is able to make his own medical decisions at this time as he is confused. We did complete a MOLST and this was signed and placed on the chart. The patient is a DNR, DNI. See MOLST for additional request from family 1600-Patient is pending transfer to [facility] for further management. I did sign him out to Dayan HUDSON pending this disposition. Medications Administered Generic Name Dose Route Start Last Admin Trade Name Freq PRN Reason Stop Dose Admin Sodium Chloride 1,000 mls @ 100 mls/hr 11/12/23 14:45 11/12/23 15:09 Ns IVCONT 100 mls/hr .Q10H TOÑITO Administration Discontinued Medications Generic Name Dose Route Start Last Admin Trade Name Freq PRN Reason Stop Dose Admin Dexamethasone Sodium Phosphate 10 mg 11/12/23 12:23 11/12/23 12:55 Dexamethasone Sod Phosphate 10 Mg/Ml Vial IVPUSH 11/12/23 12:24 10 mg ONCE ONE Administration Medical Decision Making Medical Decision Making MDM Narrative: This is a 68-year-old male who was recently diagnosed with lung cancer and is currently of the staging process well by Dr. Lozada who presents to the ER with concern for confusion from family.? Per report from EMS patient seemed confused which is not his baseline prompting them to call 911.? There is no reports of injury or trauma.? Patient is taking Plavix and aspirin after recent stent placement.? He also has an underlying history of hyperlipidemia, COPD, opiate use disorder.? He had been on Suboxone for 2 weeks ago after his cancer diagnosis he was switched to oxycodone 5 mg Q 8 hours which he tells me he has been taking as prescribed and has not taken any additional doses of oxycodone in the last 24 hours.? He denies any headache, dizziness, vision changes, vomiting.? He does have chronic chest wall pain with coughing but denies any other new or concerning symptoms.? On arrival patient is alert and oriented. He is able to answer all questions appropriately but is slow to respond to them. For example, he initially thought the year was 2003 and then corrected himself to 2023. He also believe that today was Monday but then corrected himself. No overt neurological deficits. Vitals are stable Due to medical history I will obtain a CT head, labs, UA, [place], CXR Differential Diagnosis Differential Diagnoses: The differential diagnosis associated with the presentation includes Metastatic disease, ICA, CVA, metabolic encephalopathy Admission/Observation Consideration of admission/observation: Escalation of care including admission/observation considered Lab Data MDM Lab Attestation statement: I reviewed the patient's lab results. 11/12/23 09:36 11/12/23 09:36 Labs: Lab Results 11/12/23 11/12/23 11/12/23 Range/Units 09:36 13:20 14:40 WBC 7.7 (4.8-10.8) X10*3/uL RBC 4.77 (4.60-5.80) X10*6/uL Hgb 12.4 L (14.0-18.0) g/dl Hct 38.5 L (42.0-52.0) % MCV 80.7 (80.0-98.0) fL MCH 26.0 L (27.0-33.0) pg MCHC 32.2 (31.0-36.0) g/dl RDW 15.0 (11.0-16.0) % Plt Count 369 (160-400) X10*3/uL MPV 9.0 L (9.4-12.4) fL Immature Gran % (Auto) 0.4 (0.0-0.4) % Neut % (Auto) 77.9 H (45-73) % Lymph % (Auto) 14.3 L (20-40) % [place] % (Auto) 6.2 (2-11) % Eos % (Auto) 0.6 (0-4) % Baso % (Auto) 0.6 (0-2) % Lymph # (Auto) 1.1 L (1.2-4.9) X10*3/uL [place] # (Auto) 0.5 (0.1-1.2) X10*3/uL Eos # (Auto) 0.1 (0.0-0.4) X10*3/uL Baso # (Auto) 0.1 (0.0-0.2) X10*3/uL Abs Immat Gran (auto) 0.03 (0.00-0.03) X10*3/uL Absolute Neuts (auto) 6.0 (2.0-8.3) x10*3/uL Absolute Nucleated RBC 0.000 (0.0-0.012) X10*3/uL Nucleated RBC % (auto) 0.0 (0.0-0.2) /100WBC Sodium 140 (135-145) mmol/L Potassium 4.0 (3.3-5.1) mmol/L Chloride 102 (96-108) mmol/L Carbon Dioxide 31 H (22-29) mmol/L Anion Gap 11 L (12-20) BUN 9 (9-16) mg/dL Creatinine 0.62 (0.5-1.4) mg/dL Estim Creat Clear Calc 111.7 Estimated GFR > 60 Random Glucose 152 H (60-115) mg/dL Calcium 9.9 (8.4-10.2) mg/dL Magnesium 2.1 (1.6-2.6) mg/dL Total Bilirubin 0.4 (0.0-1.0) mg/dL Direct Bilirubin 0.2 (0.0-0.5) mg/dL AST 13 (5-37) U/L ALT 9 (0-40) U/L Alkaline Phosphatase 93 (39-117) U/L Troponin I High Sens 2.9 (<3.5-35.0) ng/L Total Protein 7.5 (6.5-8.0) g/dL Albumin 3.5 (3.5-5.0) g/dL Urine Color Yellow Urine Appearance Clear Urine pH 8.5 (5.0-9.0) Ur Specific [place] 1.020 (1.005-1.025) Urine Protein Trace (Neg-Trace) mg/dL Urine Glucose (UA) Negative (Negative) mg/dL Urine Ketones Trace (Negative) mg/dL Urine Blood Negative (Negative) Urine Nitrite Negative (Negative) Ur Leukocyte Esterase Negative (Negative) Salicylates < 5.0 L (15-30) mg/dL Urine Opiates Screen Not Detected (Not Detect) Ur Buprenorphine Scrn Positive (Not Detect) ng/mL Ur Oxycodone Screen Positive (Not Detect) ng/mL Urine Methadone Screen Not Detected (Not Detect) ng/mL Urine Fentanyl Screen Not Detected (Not Detect) Acetaminophen < 3 (<30) mcg/mL Ur Barbiturates Screen Not Detected (Not Detect) Ur Phencyclidine Scrn Not Detected (Not Detect) Ur Amphetamines Screen Not Detected (Not Detect) U Benzodiazepines Scrn Not Detected (Not Detect) Urine Cocaine Screen Not Detected (Not Detect) U Marijuana (THC) Screen Not Detected (Not Detect) Ethyl Alcohol < 10 mg/dL COVID-19 (RUI) Negative (Negative) COVID-19 Clin Com See Note Independent Interpretation I performed an independent interpretation of an: EKG, Plain X-Ray and CT Scan Interpretation: I independently reviewed the EKG which shows normal sinus rhythm with a rate of 73, normal MA, normal QRS, nonspecific ST change I independently reviewed the x-ray/CT head and agree with the radiologist's Radiology Impression Discussion of test interpretation with radiology: I have reviewed the radiologist's reading. Radiologist Impression: [address] [address] XRay Report Signed Patient: Dagoberto Garcia MR#: [id number] : 1955 Acct:[id number] Age/Sex: 68 / M ADM Date: 11/12/23 Loc: .ED Attending Dr: Ordering Physician: Mita Olivas NP Date of Service: 11/12/23 Procedure(s): XR chest 1V Accession Number(s): [id number] cc: Thony Wagner MD; Mita Olivas NP~ EXAMINATION: XR chest 1V CLINICAL INFORMATION: Reason for Exam ams COMPARISON: Prior chest x-ray August 2023 TECHNIQUE: Single portable frontal view. Tubes and lines: None Lungs and pleura: Opacification at lung bases bilaterally especially left lung base suggesting infiltrate/atelectasis. Was also seen on prior exam, This might be chronic or recurrent. Blunting of left costophrenic angle suggesting small subpulmonic pleural effusion. Heart and mediastinum: Prominent left hilum left parahilar mass correlate with patient's known neoplasm.. Bones/soft tissue: Skeletal structures included are normal for patient's age. XR/XR chest 1V IMPRESSION: 1. Opacification at lung bases bilaterally especially left lung base suggesting infiltrate/atelectasis. Was also seen on prior exam, this might be chronic or recurrent. 2. Prominent left hilum left parahilar mass correlate with patient's known neoplasm, not significantly changed.. [place] [address] CT Scan Report Signed Patient: Dagoberto Garcia MR#: [id number] : 1955 Acct:[id number] Age/Sex: 68 / M ADM Date: 11/12/23 Loc: HO.ED Attending Dr: Ordering Physician: Mita Olivas NP Date of Service: 11/12/23 Procedure(s): CT head/brain wo IV con Accession Number(s): [id number] cc: Thony Wagner MD; Mita Olivas NP~ CT head/brain wo IV con CLINICAL INFORMATION: Reason for Exam AMS, h/o malignancy COMPARISON: PET/CT from 11/07/2023/MRI from September 2023. TECHNIQUE: Department standard protocol. This CT examination was performed using dose optimization techniques as appropriate, variously including the following: *Automated exposure control *Adjustment of mA and/or kV according to patient size (this includes techniques or standardized protocols for targeted exams where dose is matched to indication/reason for exam; i.e. 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 There is surrounding vasogenic edema and mass effect. This is newly found on today's exam. SUBDURAL SPACE: No bleed. BASAL GANGLIA AND PINEAL GLAND: Lacunar infarct in the right caudate lobe indeterminant age. VENTRICLES: Symmetric and normal in size. CEREBELLUM AND BRAINSTEM: Redemonstration of heterogeneous irregular mass in the left cerebellum measures 3.5 x 3.9 cm containing hyperdense material could be petechial hemorrhage, surrounding hypodensity likely brain edema and mass effect. This was previously identified on a prior PET/CT and highly suspicious for neoplastic activity probably metastasis. CEREBELLOPONTINE ANGLES: No lesion found. ORBITS: No intraorbital mass. VESSELS: Unremarkable SKULL BASE: Unremarkable INCLUDED SINUSES AT SKULL BASE: Clear SKULL AND SKIN: No fracture or bone lesion found. CT/CT head/brain wo IV con IMPRESSION: 1. Redemonstration of heterogeneous irregular mass in the left cerebellum 3.5 x 3.9 cm containing hyperdense material could be petechial hemorrhage, surrounding hypodensity likely brain edema and mass effect, there is no midline shift. This was previously identified on a prior PET/CT and suspicious for neoplastic activity probably metastasis. 2. 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 There is surrounding vasogenic edema / mass effect. 3. Lacunar infarct in the right caudate lobe indeterminant age. 4. Exam is limited due to lack of contrast. Independent Historian Clinical information obtained from an independent historian. History obtained from or confirmed by: EMS and Other (Family) Family reports patient has been confused with his medications and has missed meds and taken extra doses of medications He fill 30 tablets of oxycodone on 11/07 and has 5 left per family He does live with his HCP who reports increasing confusion over the last few days, talking throughout the night in Turkish to himself External Record Review External record reviewed: Outpatient record Reviewed oncology notes from October 27 Patient with primary lung cancer. Had brain MRI in September but was unable to complete it due to claustrophobia. Plans from oncology notes were for patient to receive a PET scan to they may proceed with treatment PET scan reviewed from November 06 which shows large pulmonary mass in the left lower lobe consistent with primary pulmonary malignancy. There is a lesion seen in the left cerebellar hemisphere suspicious for metastatic disease. Patient also noted to have right adrenal mass, left-sided retroperitoneal lymph node and possible liver all concerning for metastatic disease Critical Care Time Critical Care Time Critical Care Time: Yes Total Critical Care Time: 120 Attestation: Discussion with Neurosurgery, discussion with Medicine for transfer, multiple discussions with family about patient prognosis, goals of care Discharge Plan Discharge Clinical Impression: Lung cancer metastatic to brain Patient Disposition: [facility] Transfer Details: [facility] Prescriptions: No Action ezetimibe [Zetia] 10 mg tablet 10 mg PO DAILY Qty: 30 5RF clopidogrel 75 mg tablet 75 mg PO DAILY Qty: 90 3RF isosorbide mononitrate 60 mg tablet extended release 24 hr 120 mg PO DAILY 30 Days Qty: 60 11RF nitroglycerin 0.4 mg tablet, sublingual 0.4 mg sublingual PRN (Reason: Chest Pain) oxycodone 10 mg Tablet 10 mg PO Q6H PRN (Reason: Pain (Scale Score 7-10)) Qty: 30 0RF Rx Instructions: Partial Fill upon patient request. aspirin 81 mg tablet,delayed release (DR/EC) 81 mg PO DAILY buprenorphine-naloxone [Suboxone] 8-2 mg film 1 film sublingual TID Qty: 90 2RF metformin 500 mg tablet 500 mg PO .DAILY@NOON cyclobenzaprine 10 mg tablet 10 mg PO BEDTIME PRN (Reason: Muscle Spasm) metoprolol succinate 50 mg tablet extended release 24 hr 100 mg PO DAILY 90 Days Qty: 180 1RF atorvastatin 80 mg tablet 80 mg PO BEDTIME 90 Days Qty: 90 1RF Rx Instructions: Dose increased for better cholesterol control Take 1 tablet daily at bedtime fluticasone furoate-vilanterol [Breo Ellipta] 100-25 mcg/dose blister with device 1 inh inhalation DAILY Qty: 60 3RF Print Language: Bruneian
[2023-11-12 09:40] LABS: MANUAL DIFF FLAG NO
[2023-11-12 09:43] LABS: Basophils Absolute Auto 0.1 X10*3/uL (0.0-0.2); Basophils Percent Auto 0.6 % (0-2); Eosinophils Absolute Auto 0.1 X10*3/uL (0.0-0.4); Eosinophils Percent Auto 0.6 % (0-4); Hematocrit 38.5 % (42.0-52.0); Hemoglobin 12.4 g/dl (14.0-18.0); Imm Gran Abs Auto 0.03 X10*3/uL (0.00-0.03); Imm Gran Pct Auto 0.4 % (0.0-0.4); Lymphocytes Absolute Auto 1.1 X10*3/uL (1.2-4.9); Lymphocytes Percent Auto 14.3 % (20-40); Mean Corpuscular HGB Conc 32.2 g/dl (31.0-36.0); Mean Corpuscular Volume 80.7 fL (80.0-98.0); Monocytes Absolute Auto 0.5 X10*3/uL (0.1-1.2); Monocytes Percent Auto 6.2 % (2-11); Neutrophils Percent Auto 77.9 % (45-73); Platelet Count 369 X10*3/uL (160-400); Red Blood Count 4.77 X10*6/uL (4.60-5.80); White Blood Count 7.7 X10*3/uL (4.8-10.8)
[2023-11-12 10:36] LABS: Acetaminophen LAB < 3 mcg/mL (<30); Salicylate < 5.0 mg/dL (15-30)
[2023-11-12 10:41] LABS: Alanine Aminotransferase 9 U/L (0-40); Albumin Level 3.5 g/dL (3.5-5.0); Alkaline Phosphatase 93 U/L (39-117); Anion Gap 11 (12-20); Aspartate Amino Transferase 13 U/L (5-37); Bilirubin Direct 0.2 mg/dL (0.0-0.5); Bilirubin Total 0.4 mg/dL (0.0-1.0); Blood Urea Nitrogen 9 mg/dL (9-16); Calcium 9.9 mg/dL (8.4-10.2); Carbon Dioxide 31 mmol/L (22-29); Chloride 102 mmol/L (96-108); Creatinine Clr Calc Pharmacy 111.7; Estimated Glomerular Filt Rate > 60; Ethanol < 10 mg/dL; Glucose Random 152 mg/dL (60-115); Magnesium 2.1 mg/dL (1.6-2.6); Sodium 140 mmol/L (135-145); Total Protein 7.5 g/dL (6.5-8.0)
[2023-11-12 10:50] LABS: Troponin-I High Sensitivity 2.9 ng/L (<3.5-35.0)
[2023-11-12 12:00] VITALS: BP 158/82; PULSE 83; RESP 10; O2SAT 97
--- NOTE | 2023-11-12 12:00 | PC.NURSE ---
Pt BIBA, family reporting concern of AMS, from baseline. Pt reports no pain. AO to self, Pt resting quietly, with family at bedside.
[2023-11-12] MEDS: dexAMETHasone sod phosphate 10 MG/ML VIAL IVPUSH (12:55)
[2023-11-12 13:28] LABS: Appearance Urine Clear; Color Urine Yellow; Glucose Urine UA Negative (Negative); Leukocyte Esterase Urine Negative (Negative); Nitrite Urine Negative (Negative); PH 8.5 (5.0-9.0); Urine Blood Negative (Negative); Urine Ketones Trace mg/dL (Negative); Urine Protein Trace mg/dL (Neg-Trace)
[2023-11-12 13:47] LABS: Amphetamine Screen Urine Not Detected (Not Detect); Barbiturates, Urine Not Detected (Not Detect); Benzodiazepines Screen Urine Not Detected (Not Detect); Buprenorphine Scr Positive (Not Detect); Cannabinoid Screen Urine Not Detected (Not Detect); Cocaine Screen Urine Not Detected (Not Detect); Fentanyl, urine Not Detected (Not Detect); Methadone Screen, Urine Not Detected (Not Detect); Opiate Screen Urine Not Detected (Not Detect); Oxycodone Screen Urine Positive (Not Detect); Phencyclidine Screen Urine Not Detected (Not Detect)
[2023-11-12 14:59] LABS: COVID-19 Test Negative (Negative); IDNOW Serial# 152EDE1D
[2023-11-12 15:06] VITALS: BP 132/76; PULSE 80; RESP 16; TEMP 36.2; O2SAT 98
[2023-11-12] MEDS: 0.9 % Sodium Chloride 1,000 ML 100 ML IVCONT (15:09)
--- NOTE | 2023-11-12 15:40 | PC.NURSE ---
Provider at bedside, discussing transfer to [facility] and about MOLST, pt is now DNR/DNI Pt calm/cooperative, resting quietly. Family will be notified when transfered.
--- NOTE | 2023-11-12 16:57 | PC.NURSE ---
this RN attempted to call [facility] for nurse to nurse, pt transported to facility at 1642. Family notified. Awaiting response from EVANGELISTA Seaman for report.
[2023-11-12 16:59] VITALS: BP 132/76; PULSE 80; RESP 16; TEMP 36.2; O2SAT 98
== END 2023-11-12 17:00 | disposition short-term general hospital (02) ==
PROVIDERS: Nurse Practitioner Family; Emergency Provider Emergency Medicine; PCP Internal Medicine
DX: R42 Dizziness and giddiness (principal); R41.82 Altered mental status, unspecified; R07.89 Other chest pain; C34.90 Malignant neoplasm of unspecified part of unspecified bronchus or lung; C79.31 Secondary malignant neoplasm of brain; M54.50 Low back pain, unspecified; Z79.899 Other long term (current) drug therapy; Z79.01 Long term (current) use of anticoagulants; Z11.52 Encounter for screening for COVID-19; Z51.81 Encounter for therapeutic drug level monitoring
CPT/HCPCS: 36415; 70450; 71045; 80048; 80076; 80143; 80179; 80307; 81003; 83735; 84484; 85025; 87635; 93005; 99285; J1100

== ENCOUNTER → 2023-11-12 09:25 | Outpatient (BNV) | payer BC, MEDICARE, SELFPAY | PROVIDERS: Emergency Provider Emergency Medicine; PCP Internal Medicine; Visit Provider Internal Medicine Cardiovascular Disease | DX: R94.31 Abnormal electrocardiogram [ECG] [EKG] (principal) | CPT/HCPCS: 93010 ==